=== PATIENT | female | born 1960 | race Hispanic/Latino ===

== ENCOUNTER 2019-07-17 11:09 | Inpatient (IN) | payer OTHER, SELFPAY ==
[2019-07-17] MEDS ORDERED: IPRATROPIUM/ALBUTEROL SULFATE 3 ML AMPUL.NEB IH ONE (11:40)
[2019-07-17] MEDS ORDERED: MAGNESIUM SULFATE 2 GM/50 ML BAG IV ONE (11:40)
[2019-07-17] MEDS ORDERED: CEFEPIME/NS 2 GM/100 ML 2 GM/100 ML BAG IV ONE (11:40)
[2019-07-17] MEDS ORDERED: methylPREDNISolone Sod Succinate 125 MG/2 ML INJ IV ONE (11:40)
--- NOTE | 2019-07-17 11:45 | Emergency Department Report ---
ED Shortness of Breath HPI - General Chief Complaint: Dyspnea/Respdistress Stated Complaint: PNEUMONIA Time Seen by Provider: 07/17/19 11:32 Source: patient Mode of arrival: Ambulatory Limitations: No Limitations - History of Present Illness Initial Comments: Patient is a 58-year-old female that presents emergency room with complaints of shortness of breath and fatigue and bilateral lower extremity edema as well as periorbital edema. Patient states her edema to her face and legs been going on for 1 month. Patient states her edema is worsening. Patient states her fatigue is worsening. Patient states her shortness of breath has been worsening. P atient states she was seen in an urgent care 2 days ago and was prescribed Augmentin and redness oh. Patient states she is taking medications. Patient states her symptoms are not improving. Patient states her oxygen saturation is decreasing. Patient states she has a history of asthma but does not have a history of COPD. Patient states she smokes daily. Patient states she is a pack-a-day smoker. MD Complaint: shortness of breath, cough -: Sudden Severity: severe Known History Of: COPD, asthma Context: recent URI Associated Symptoms: pain with inspiration, cough, orhopnia Treatments Prior to Arrival: bronchodilator - Related Data Home Oxygen Therapy: No Allergies Allergy/AdvReac Type Severity Reaction Status Date / Time codeine AdvReac Nausea Verified 07/17/19 11:16 ED Review of Systems ROS: Stated complaint: PNEUMONIA Other details as noted in HPI Constitutional: denies: chills, fever Eyes: denies: eye pain, eye discharge, vision change ENT: denies: ear pain, throat pain Respiratory: cough, orthopnea, shortness of breath, SOB with exertion, SOB at rest, wheezing Cardiovascular: denies: chest pain, palpitations Endocrine: no symptoms reported Gastrointestinal: denies: abdominal pain, nausea, diarrhea Genitourinary: denies: urgency, dysuria, discharge Musculoskeletal: denies: back pain, joint swelling, arthralgia Skin: denies: rash, lesions Neurological: denies: headache, weakness, paresthesias Psychiatric: denies: anxiety, depression Hematological/Lymphatic: denies: easy bleeding, easy bruising ED Past Medical Hx - Past Medical History Previous Medical History?: Yes Hx Asthma: Yes - Surgical History Past Surgical History?: Yes Additional Surgical History: sinus surgery - Family History Family history: no significant - Social History Smoking Status: Current Every Day Smoker Substance Use Type: None ED Physical Exam - General Limitations: No Limitations General appearance: alert, appears intoxicated - Head Head exam: Present: atraumatic, normocephalic - Eye Eye exam: Present: normal appearance - ENT ENT exam: Present: mucous membranes moist - Neck Neck exam: Present: normal inspection - Respiratory Respiratory exam: Present: respiratory distress, wheezes, rhonchi, chest wall tenderness, accessory muscle use - Cardiovascular Cardiovascular Exam: Present: regular rate, normal rhythm. Absent: systolic murmur, diastolic murmur, rubs, gallop - GI/Abdominal GI/Abdominal exam: Present: soft, normal bowel sounds - Extremities Exam Extremities exam: Present: normal inspection - Back Exam Back exam: Present: normal inspection - Neurological Exam Neurological exam: Present: alert, oriented X3 - Psychiatric Psychiatric exam: Present: normal affect, normal mood - Skin Skin exam: Present: warm, dry, intact, normal color. Absent: rash ED Course Vital Signs 07/17/19 07/17/19 07/17/19 11:14 12:01 14:09 Temperature 97.6 F Pulse Rate 81 71 Pulse Rate [ 74 Anterior Bilateral Throughout] Respiratory 18 12 Rate Respiratory 22 Rate [Anterior Bilateral Throughout] Blood Pressure 176/96 O2 Sat by Pulse 86 95 Oximetry - Reevaluation(s) Reevaluation #1: Patient states she's feeling a little bit better. Patient is currently on a nebulizer treatment. Patient's oxygen saturation better on oxygen. 07/17/19 12:11 Reevaluation #2: Nurse asked me to see the patient. The patient is currently descending on 3 L of O2. Patient will be placed on BiPAP 07/17/19 13:23 Reevaluation #3: Patient on BiPAP. Patient's oxygen saturation better. Patient states she is feeling better. I discussed all results with patient. I discussed plan of care and admission with patient. Patient agrees with admission. Patient will be admitted to the hospital service. 07/17/19 14:22 - Consultations Consultation #1: Hospitalist consult for admission. Hospitalist admit patient. 07/17/19 14:23 ED Medical Decision Making - Lab Data Result diagrams: 07/17/19 11:56 07/17/19 11:56 - EKG Data -: EKG Interpreted by Me EKG shows normal: sinus rhythm, axis, intervals, QRS complexes, ST-T waves Rate: normal - Radiology Data Radiology results: report reviewed, image reviewed CHEST 1 VIEW / XR chest 1V ap INDICATION: Dyspnea. COMPARISON: None. FINDINGS: Portable, single, frontal chest radiograph suggests mild cardiomegaly. Slight aortic knob calcifications. Grossly normal mediastinal and hilar contours. Clear lungs without pleural effusions or CHF. Right hemidiaphragm slightly higher than the left. EKG leads. Intact bones. IMPRESSION: Slight cardiomegaly without acute chest process, as described. - Medical Decision Making Patient is a 58-year-old female that presents emergency room for difficulties breathing, shortness of breath. Patient found to have respiratory distress on initial evaluation. Patient placed on oxygen for hypoxia. Patient's clinical f indings consistent with a COPD and possible new onset CHF. Patient admitted to the hospital service. Patient's labs unremarkable except for elevated BNP. Patient's chest x-ray negative except for cardiomegaly. Patient's EKG read. - Differential Diagnosis shortness of breath. CHF. COPD. Hypoxia Critical Care Time: Yes Critical care time in (mins) excluding proc time.: 35 Critical care attestation.: If time is entered above; I have spent that time in minutes in the direct care of this critically ill patient, excluding procedure time. Critical Care Time: 35 minutes ED Disposition Clinical Impression: Hypoxia, SOB (shortness of breath), New onset of congestive heart failure, Lower leg edema, COPD exacerbation, Elevated brain natriuretic peptide (BNP) level, Hyperkalemia Disposition: OP ADMIT IP TO THIS HOSP Is pt being admited?: Yes Does the pt Need Aspirin: No Condition: Critical Referrals: PRIMARY CARE, [Primary Care Provider] - 3-5 Days Time of Disposition: 14:21
[2019-07-17 12:24] LABS: Basophils % (Auto) 0.4 % (0.0-1.8); Eosinophils % (Auto) 0.1 % (0.0-4.3); Hemoglobin 18.2 gm/dl (10.1-14.3); Lymphocytes # (Auto) 0.9 K/mm3 (1.2-5.4); Mean Corpuscular HGB Conc 33 % (30-34); Mean Corpuscular Volume 112 fl (79-97); Monocytes # (Auto) 0.7 K/mm3 (0.0-0.8); Monocytes % (Auto) 10.7 % (0.0-7.3); Platelet Count 177 K/mm3 (140-440); Red Blood Count 4.92 M/mm3 (3.65-5.03); Red Cell Distribution Width 15.9 % (13.2-15.2)
[2019-07-17 12:27] LABS: Hematocrit 55.1 % (30.3-42.9)
--- NOTE | 2019-07-17 12:32 | XRay Report ---
CHEST 1 VIEW / XR chest 1V ap INDICATION: Dyspnea. COMPARISON: None. FINDINGS: Portable, single, frontal chest radiograph suggests mild cardiomegaly. Slight aortic knob c alcifications. Grossly normal mediastinal and hilar contours. Clear lungs without pleural effusions o r CHF. Right hemidiaphragm slightly higher than the left. EKG leads. Intact bones. IMPRESSION: Slight cardiomegaly without acute chest process, as described. Thank you for the opportunity to participate in this patient's care. Signer Name: David Guerra Signed: 07/17/2019 12:28 PM Workstation Name: [id number]
[2019-07-17 12:45] LABS: Creatine Kinase MB 4.9 ng/mL (0.0-4.0)
[2019-07-17 12:49] LABS: Alanine Aminotransferase 75 units/L (7-56); Albumin 4.3 g/dL (3.9-5); BUN/Creatinine Ratio 36; Blood Urea Nitrogen 18 mg/dL (7-17); Hemolysis Index 32
[2019-07-17] MEDS ORDERED: FUROSEMIDE 40 MG/4 ML INJ IV ONE (13:39)
--- NOTE | 2019-07-17 14:22 | History and Physical Report ---
History of Present Illness Chief complaint: Im short of breath History of present illness: 58 YO Female with Obesity Hypoventilation Syndrome, COPD, Asthma, Nicotine Dependence presents to ED for evaluation. Pt states that she has experienced shortness of breath over the past 1 week, with progressively worsening symptoms over the past 3 days. Pt was seen and evaluated at Urgent Care 2 days ago and treated with oral antibiotics with worsening symptoms. Pt also reports bilateral leg swelling, decreased exercise tolerance, Orthopnea/PND, Dypsnea on exertion, Dypsnea at rest, and 7 lbs weight gain over the past 1 week. Pt transported to [facility] via private vehicle. Pt seen and evaluated in ED and found to have Acute Hypoxemic Respiratory Failure with pulse oximetry of 86% on room air, as well as symptoms consistent with CHF Decompensation. Pt admitted to [facility]. Pt treated with diuretic therapy and NIPPV with mild improvement in symptoms. Pt denies fever, chills, palpitations, trauma, BRBPR, productive cough, skin rash, or recent ill contacts. No prior admission for review. No medication listed for reconciliation at time of admission. Past History Past Medical History: other (see hpi) Past Surgical History: Other (Nasal surgery) Social history: single, smoking Family history: diabetes, hypertension Medications and Allergies Allergies Allergy/AdvReac Type Severity Reaction Status Date / Time codeine AdvReac Nausea Verified 07/17/19 11:16 Review of Systems Constitutional: weight gain, no weight loss, no fever, no chills, no sweats Ears, nose, mouth and throat: no ear pain, no ear discharge, no tinnitis, no decreased hearing, no nose pain, no nasal congestion Cardiovascular: orthopnea, edema, shortness of breath, dyspnea on exertion, paroxysmal nocturnal dyspnea, leg edema, decreased exercise tolerance, no chest pain, no palpitations, no rapid/irregular heart beat Respiratory: no cough, no cough with sputum, no excessive sputum, no hemoptysis Gastrointestinal: no abdominal pain, no nausea, no vomiting, no constipation, no hematemesis Genitourinary Female: no pelvic pain, no flank pain, no menorrhagia, no urgency Rectal: no pain, no incontinence, no bleeding Musculoskeletal: no neck stiffness, no neck pain, no shooting arm pain, no arm numbness/tingling Integumentary: no rash, no pruritis, no redness, no sores, no jaundice Neurological: no transient paralysis, no paralysis, no weakness, no parathesias, no numbness, no tingling, no seizures, no syncope Psychiatric: no anxiety, no memory loss, no change in sleep habits, no sleep disturbances, no hypersomnia, no change in appetite, no change in libido, no suicidal ideation Endocrine: no cold intolerance, no heat intolerance, no polyphagia, no excessive thirst, no polydipsia, no polyuria, no excessive sweating, no flushing Hematologic/Lymphatic: no easy bruising, no easy bleeding, no lymphadenopathy, no lymphedema Allergic/Immunologic: no allergic rhinitis, no wheezing, no anaphylaxis, no angioedema Exam - Constitutional Vitals: Temp Pulse Resp BP Pulse Ox 97.6 F 74 22 176/96 86 07/17/19 11:14 07/17/19 12:01 07/17/19 12:01 07/17/19 11:14 07/17/19 11:14 General appearance: Present: mild distress, obese - EENT Eyes: Present: PERRL ENT: hearing intact, clear oral mucosa - Neck Neck: Present: supple, normal ROM - Respiratory Respiratory effort: labored, accessory muscle use, stridor Respiratory: bilateral: diminished, rhonchi - Cardiovascular Heart Sounds: Present: S1 & S2. Absent: rub, click - Extremities Extremities: pulses symmetrical, No edema Peripheral Pulses: within normal limits - Abdominal General gastrointestinal: Present: soft, non-tender, non-distended, normal bowel sounds Female genitourinary: Present: normal - Integumentary Integumentary: Present: clear, warm, dry - Musculoskeletal Musculoskeletal: gait normal, strength equal bilaterally - Psychiatric Psychiatric: appropriate mood/affect, intact judgment & insight - Neurologic Neurologic: CNII-XII intact, moves all extremities Results - Labs CBC & Chem 7: 07/17/19 11:56 07/17/19 11:56 Labs: Abnormal lab results 07/17/19 07/17/19 07/17/19 Range/Units 11:56 11:56 11:56 Hgb 18.2 H (10.1-14.3) gm/dl Hct 55.1 H* (30.3-42.9) % MCV 112 H (79-97) fl MCH 37 H (28-32) pg RDW 15.9 H (13.2-15.2) % [place] % (Auto) 10.7 H (0.0-7.3) % Lymph # 0.9 L (1.2-5.4) K/mm3 Seg Neutrophils % 74.8 H (40.0-70.0) % Potassium 5.1 H (3.6-5.0) mmol/L BUN 18 H (7-17) mg/dL Creatinine 0.5 L (0.7-1.2) mg/dL AST 44 H (5-40) units/L ALT 75 H (7-56) units/L CK-MB (CK-2) 4.9 H (0.0-4.0) ng/mL CK-MB (CK-2) Rel Index 8.3 H (0-4) NT-Pro-B Natriuret Pep (0-900) pg/mL 07/17/19 Range/Units 12:07 Hgb (10.1-14.3) gm/dl Hct (30.3-42.9) % MCV (79-97) fl MCH (28-32) pg RDW (13.2-15.2) % [place] % (Auto) (0.0-7.3) % Lymph # (1.2-5.4) K/mm3 Seg Neutrophils % (40.0-70.0) % Potassium (3.6-5.0) mmol/L BUN (7-17) mg/dL Creatinine (0.7-1.2) mg/dL AST (5-40) units/L ALT (7-56) units/L CK-MB (CK-2) (0.0-4.0) ng/mL CK-MB (CK-2) Rel Index (0-4) NT-Pro-B Natriuret Pep 1446 H (0-900) pg/mL Assessment and Plan - Patient Problems (1) CHF (congestive heart failure) Current Visit: Yes Status: Suspected Qualifiers: Heart failure type: systolic Heart failure chronicity: acute Qualified Code(s): I50.21 - Acute systolic (congestive) heart failure Plan to address problem: Admit to IMCU, Diuresis, BNP, strict I/O, daily weight, monitor uop q shift, Echo, thyroid panel, magnesium level, supplemental oxygen, (2) Acute hypoxemic respiratory failure Current Visit: Yes Status: Acute Plan to address problem: Chest X ray, CTA chest, supplemental oxygen, nebulizer therapy, NIPPV, ABG, pulse oximetry, (3) Obesity hypoventilation syndrome Current Visit: Yes Status: Acute Plan to address problem: Supplemental oxgygen, nebulizer therapy, balanced diet, increased physical activity at discharge, pulse oximetry (4) Nicotine dependence unspecified, with withdrawal Current Visit: Yes Status: Acute Qualifiers: Nicotine product type: cigarettes Qualified Code(s): F17.213 - Nicotine dependence, cigarettes, with withdrawal Plan to address problem: +15 min smoking cessation counseling, supportive care. (5) DVT prophylaxis Current Visit: Yes Status: Acute Plan to address problem: SCD to BLE while in bed, Pt ambulatory
[2019-07-17] MEDS ORDERED: ALBUTEROL 2.5 MG/3 ML NEBU IH PRN (14:39)
--- NOTE | 2019-07-17 16:01 | Cat Scan Report ---
CTA CHEST WITH CONTRAST / CT angio chest INDICATION : sob. hypoxia. TECHNIQUE: Axial imaging performed through the chest, with contrast bolus timing set to maximize opa cification of the pulmonary arteries. 3-plane MIP reformatted images were obtained. All CT scans at this location are performed using CT dose reduction for ALARA by means of automated exposure control. 100 mL of intravenous contrast administered. COMPARISON: CXR from earlier today. FINDINGS: Normal heart size with silhouette slightly exaggerated due to prominent right cardiophrenic angle fat pad. No effusions. No aortic aneurysm, dissection or suspicious pulmonary arterial filling defects. Mild pulmonary arterial hypertension. Mild aortic arch atherosclerotic calcifications noted . No size significant adenopathy. Normal airway. Unremarkable thyroid. Slight bibasilar atelectasis. Otherwise unremarkable lungs. Imaged upper abdomen reveals no acute significant abnormality. Subtle fatty hepatic infiltration not entirely excluded. Small bilateral extrarenal pelves may be incompletely imaged. Mild multilevel spinal degenerative changes as spurring and few endplate irregularities. IMPRESSION: No CT evidence of pulmonary embolism with few other incidental findings, as above. Thank you for the opportunity to participate in this patient's care. Signer Name: David Guerra Signed: 07/17/2019 3:56 PM Workstation Name: [id number]
[2019-07-18] MEDS: NICOTINE 14 MG/24 HR PATCH TD SCH ×2 (00:07→09:54)
[2019-07-18 05:01] LABS: Basophils % (Auto) 0.1 % (0.0-1.8); Hemoglobin 19.1 gm/dl (10.1-14.3); Lymphocytes # (Auto) 0.5 K/mm3 (1.2-5.4); Lymphocytes % (Auto) 6.6 % (13.4-35.0); Mean Corpuscular HGB Conc 33 % (30-34); Mean Corpuscular Volume 111 fl (79-97); Monocytes # (Auto) 0.3 K/mm3 (0.0-0.8); Monocytes % (Auto) 4.5 % (0.0-7.3); Platelet Count 171 K/mm3 (140-440); Red Blood Count 5.25 M/mm3 (3.65-5.03); Red Cell Distribution Width 15.5 % (13.2-15.2)
[2019-07-18 05:07] LABS: Hematocrit 58.4 % (30.3-42.9)
[2019-07-18] MEDS: FUROSEMIDE 40 MG/4 ML INJ IV SCH ×2 (05:13→17:39)
[2019-07-18 05:21] LABS: Alanine Aminotransferase 76 units/L (7-56); Albumin 3.9 g/dL (3.9-5); BUN/Creatinine Ratio 37; Blood Urea Nitrogen 22 mg/dL (7-17); Hemolysis Index 19
--- NOTE | 2019-07-18 08:05 | Progress Note ---
Assessment and Plan Assessment and plan: 58-year-old woman with history of obesity, COPD, nicotine dependence presents to the hospital shortness of breath x1 week , complaining edema to extremities and face, current every day smoker pack per day Chest x-ray slight cardiomegaly, no acute findings Copd exacerbation; steroids, nebs, pulmonology consults, aggressive chest PT -Was on Stiolto and was following with Dr. Goff. Has not followed up or taken the medications due to lack of insurance Acute hypoxic respiratory failure -Oxygen supplementation CHF was suspected but highly doubt CHF based on my exam. Patient appears euvolemic and is laying flat Discontinue diuretics, obtain echo, cardiology consult pending Tobacco abuse/dependence Smoking cessation counseling performed for 10 minutes, nicotine patches when necessary Polycythemia -Polycythemia is most likely due to smoking. Hematology consult -Patient admits that she was following up as an outpatient for for polycythemia, and it is not new dvt ppx- lovenox History Interval history: Review of systems Constitutional: No fevers, no malaise, no joint pains CVS: No chest pain, denies orthopnea or lower extremity swelling GI: No abdominal pain, no diarrhea, no vomiting, no constipation Respiratory: Complaining of shortness of breath which has been very severe. Hospitalist Physical - Physical exam Narrative exam: General.: Mild distress HEENT: Moist mucous membranes, extraocular muscles intact, no lymphadenopathy Neck: supple Cardiac: S1-S2 heard Lungs: Decreased air entry, faint expiratory wheezing Abdomen: soft , nontender, nondistended, bowel sounds positive Extremities: No edema Skin: no rash or lesions Neurologic: no gross focal deficits Psych: calm, and cooperative - Constitutional Vitals: Temp Pulse Resp BP Pulse Ox 97.7 F 56 L 15 145/94 95 07/18/19 04:00 07/18/19 07:00 07/18/19 07:00 07/18/19 07:00 07/18/19 07:00 General appearance: Present: mild distress, obese Results - Labs CBC & Chem 7: 07/18/19 04:17 07/18/19 04:17 Labs: Laboratory Last Values WBC 7.0 K/mm3 (4.5-11.0) 07/18/19 04:17 RBC 5.25 M/mm3 (3.65-5.03) H 07/18/19 04:17 Hgb 19.1 gm/dl (10.1-14.3) H 07/18/19 04:17 Hct 58.4 % (30.3-42.9) H* 07/18/19 04:17 MCV 111 fl (79-97) H 07/18/19 04:17 MCH 36 pg (28-32) H 07/18/19 04:17 MCHC 33 % (30-34) 07/18/19 04:17 RDW 15.5 % (13.2-15.2) H 07/18/19 04:17 Plt Count 171 K/mm3 (140-440) 07/18/19 04:17 Lymph % (Auto) 6.6 % (13.4-35.0) L 07/18/19 04:17 [place] % (Auto) 4.5 % (0.0-7.3) 07/18/19 04:17 Eos % (Auto) 0.0 % (0.0-4.3) 07/18/19 04:17 Baso % (Auto) 0.1 % (0.0-1.8) 07/18/19 04:17 Lymph # 0.5 K/mm3 (1.2-5.4) L 07/18/19 04:17 [place] # 0.3 K/mm3 (0.0-0.8) 07/18/19 04:17 Eos # 0.0 K/mm3 (0.0-0.4) 07/18/19 04:17 Baso # 0.0 K/mm3 (0.0-0.1) 07/18/19 04:17 Seg Neutrophils % 88.8 % (40.0-70.0) H 07/18/19 04:17 Seg Neutrophils # 6.2 K/mm3 (1.8-7.7) 07/18/19 04:17 POC ABG pH 7.355 (7.35-7.45) 07/17/19 17:51 POC ABG pCO2 69.3 (35-45) H 07/17/19 17:51 POC ABG pO2 63 (80-105) L 07/17/19 17:51 POC ABG HCO3 38.7 (22-26 mml/L) 07/17/19 17:51 POC ABG Total CO2 41 (23-27mmol/L) 07/17/19 17:51 POC ABG O2 Sat 89 07/17/19 17:51 POC ABG Base Excess 13 ((-2) - (+3)mmol/L) 07/17/19 17:51 FiO2 35 % 07/17/19 17:51 Sodium 141 mmol/L (137-145) 07/18/19 04:17 Potassium 5.0 mmol/L (3.6-5.0) 07/18/19 04:17 Chloride 96.3 mmol/L (98-107) L 07/18/19 04:17 Carbon Dioxide 32 mmol/L (22-30) H 07/18/19 04:17 Anion Gap 18 mmol/L 07/18/19 04:17 BUN 22 mg/dL (7-17) H 07/18/19 04:17 Creatinine 0.6 mg/dL (0.7-1.2) L 07/18/19 04:17 Estimated GFR > 60 ml/min 07/18/19 04:17 BUN/Creatinine Ratio 37 % 07/18/19 04:17 Glucose 153 mg/dL (65-100) H 07/18/19 04:17 Lactic Acid 1.00 mmol/L (0.7-2.0) 07/17/19 11:56 Calcium 9.0 mg/dL (8.4-10.2) 07/18/19 04:17 Magnesium 2.60 mg/dL (1.7-2.3) H 07/17/19 16:23 Total Bilirubin 0.50 mg/dL (0.1-1.2) 07/18/19 04:17 AST 39 units/L (5-40) 07/18/19 04:17 ALT 76 units/L (7-56) H 07/18/19 04:17 Alkaline Phosphatase 67 units/L (35-129) 07/18/19 04:17 Total Creatine Kinase 59 units/L (30-135) 07/17/19 11:56 CK-MB (CK-2) 4.9 ng/mL (0.0-4.0) H 07/17/19 11:56 CK-MB (CK-2) Rel Index 8.3 (0-4) H 07/17/19 11:56 Troponin T < 0.010 ng/mL (0.00-0.029) 07/17/19 11:56 NT-Pro-B Natriuret Pep 1446 pg/mL (0-900) H 07/17/19 12:07 Total Protein 6.5 g/dL (6.3-8.2) 07/18/19 04:17 Albumin 3.9 g/dL (3.9-5) 07/18/19 04:17 Albumin/Globulin Ratio 1.5 % 07/18/19 04:17 TSH 1.510 mlU/mL (0.270-4.200) 07/17/19 16:23 Free T4 1.00 ng/dL (0.76-1.46) 07/17/19 16:23 Active Medications - Current Medications Current Medications: Generic Name Dose Route Start Last Admin Trade Name Freq PRN Reason Stop Dose Admin Albuterol 2.5 mg 07/17/19 14:39 Proventil IH Q3HRT PRN Shortness Of Breath Enoxaparin Sodium 40 mg 07/18/19 22:00 Enoxaparin SUB-Q QDAY@2200 SARTHAK Furosemide 40 mg 07/17/19 18:00 07/18/19 05:13 Lasix IV 40 mg 0600,1800 SARTHAK Administration Nicotine 14 mg 07/17/19 00:30 07/18/19 00:07 Habitrol TD 14 mg QDAY SARTHAK Administration Sodium Chloride 10 ml 07/17/19 22:00 07/18/19 00:08 Sodium Chloride Flush Syringe 10 Ml IV 10 ml BID SARTHAK Administration Sodium Chloride 10 ml 07/17/19 14:39 Sodium Chloride Flush Syringe 10 Ml IV PRN PRN LINE FLUSH
[2019-07-18] MEDS ORDERED: FLU VACC QUAD 2019-20 (3 YR UP)/PF 60 MCG/0.5 ML SYRINGE IM ONE (12:00)
[2019-07-18] MEDS ORDERED: methylPREDNISolone Sod Succinate 40 MG/1 ML INJ IV SCH (14:00)
--- NOTE | 2019-07-18 15:34 | Consultation ---
History of Present Illness Consult date: 07/18/19 History of present illness: Shortness of breath and cough.History of present illness: 58 YO Female with Obesity Hypoventilation Syndrome, COPD, Asthma, Nicotine Dependence presents to ED for evaluation. Pt states that she has experienced shortness of breath over the past 1 week, with progressively worsening symptoms over the past 3 days. Pt was seen and evaluated at Urgent Care 2 days ago and treated with oral antibiotics with worsening symptoms. Pt also reports bilateral leg swelling, decreased exercise tolerance, Orthopnea/PND, Dypsnea on exertion, Dypsnea at rest, and 7 lbs weight gain over the past 1 week. Pt transported to [facility] via private vehicle. Pt seen and evaluated in ED and found to have Acute Hypoxemic Respiratory Failure with pulse oximetry of 86% on room air, as well as symptoms consistent with CHF Decompensation. Pt admitted to IM. Pt treated with diuretic therapy and NIPPV with mild improvement in symptoms. Pt denies fever, chills, palpitations, trauma, BRBPR, productive cough, skin rash, or recent ill contacts. No prior admission for review. No medication listed for reconciliation at time of admission. Patient also reports being sleepy for last several days. Has history of snoring has never had sleep studies done. Past History Past Medical History: COPD, other (see hpi) Past Surgical History: Other (Nasal surgery) Social history: single, smoking Family history: diabetes, hypertension Medications and Allergies Allergies Allergy/AdvReac Type Severity Reaction Status Date / Time codeine AdvReac Nausea Verified 07/17/19 11:16 Home Medications Medication Instructions Recorded Confirmed Last Taken Type Amoxicillin/K Clav Tab 875.125 mg PO BIDWM MDD 2 tabs 07/18/19 07/18/19 07/17/19 History 1 tab twice per day Tiotropium Br/Olodaterol HCl 25 mcg INHALATION PRN PRN 07/18/19 07/18/19 Unknown History Active Meds: Active Medications Albuterol (Proventil) 2.5 mg IH Q3HRT PRN PRN Reason: Shortness Of Breath Albuterol/Ipratropium (Duoneb *Not For Prn Use*) 1 ampul IH Q6HRT [facility] Arformoterol Tartrate (Brovana Nebu) 15 mcg IH Q12HRT [facility] Azithromycin (Zithromax) 500 mg PO QDAY [facility] Budesonide (Pulmicort) 0.5 mg IH Q12HRT [facility] Enoxaparin Sodium (Enoxaparin) 40 mg SUB-Q QDAY@2200 [facility] Furosemide (Lasix) 40 mg IV 0600,1800 [facility] Last Admin: 07/18/19 05:13 Dose: 40 mg Documented by: Methylprednisolone Sodium Succinate (Solu-Medrol) 125 mg IV Q8HR [facility] Nicotine (Habitrol) 14 mg TD QDAY [facility] Last Admin: 07/18/19 09:54 Dose: 14 mg Documented by: Sodium Chloride (Sodium Chloride Flush Syringe 10 Ml) 10 ml IV BID [facility] Last Admin: 07/18/19 09:55 Dose: 10 ml Documented by: Sodium Chloride (Sodium Chloride Flush Syringe 10 Ml) 10 ml IV PRN PRN PRN Reason: LINE FLUSH Review of Systems All systems: negative Constitutional: weight gain Breasts: deferred Cardiovascular: edema, dyspnea on exertion, leg edema Respiratory: cough, cough with sputum, shortness of breath, dyspnea on exertion, congestion, wheezing Physical Examination Vital signs: Vital Signs BP Pulse Ox 176/89 97 07/17/19 07:37 07/17/19 07:37 General appearance: no acute distress, alert, other (sincerely obese) ENT: oropharynx moist, other (crowded oropharynx) Neck: supple, no lymphadenopathy Ascultation: Bilateral: diminished breath sounds, rhonchi Gastrointestinal: other (obese) Extremities: edema (trace edema) Results - Laboratory Findings CBC and BMP: 07/18/19 04:17 07/18/19 04:17 ABG POC ABG pH 7.355 (7.35-7.45) 07/17/19 17:51 POC ABG pCO2 69.3 (35-45) H 07/17/19 17:51 POC ABG pO2 63 (80-105) L 07/17/19 17:51 POC ABG HCO3 38.7 (22-26 mml/L) 07/17/19 17:51 POC ABG Total CO2 41 (23-27mmol/L) 07/17/19 17:51 POC ABG O2 Sat 89 07/17/19 17:51 Abnormal lab findings: Abnormal Labs 07/17/19 07/17/19 07/17/19 11:56 11:56 11:56 RBC Hgb 18.2 H Hct 55.1 H* MCV 112 H MCH 37 H RDW 15.9 H Lymph % (Auto) [place] % (Auto) 10.7 H Lymph # 0.9 L Seg Neutrophils % 74.8 H POC ABG pCO2 POC ABG pO2 Potassium 5.1 H Chloride Carbon Dioxide BUN 18 H Creatinine 0.5 L Glucose Magnesium AST 44 H ALT 75 H CK-MB (CK-2) 4.9 H CK-MB (CK-2) Rel Index 8.3 H NT-Pro-B Natriuret Pep 07/17/19 07/17/19 07/17/19 12:07 16:23 17:51 RBC Hgb Hct MCV MCH RDW Lymph % (Auto) [place] % (Auto) Lymph # Seg Neutrophils % POC ABG pCO2 69.3 H POC ABG pO2 63 L Potassium Chloride Carbon Dioxide BUN Creatinine Glucose Magnesium 2.60 H AST ALT CK-MB (CK-2) CK-MB (CK-2) Rel Index NT-Pro-B Natriuret Pep 1446 H 07/18/19 07/18/19 04:17 04:17 RBC 5.25 H Hgb 19.1 H Hct 58.4 H* MCV 111 H MCH 36 H RDW 15.5 H Lymph % (Auto) 6.6 L [place] % (Auto) Lymph # 0.5 L Seg Neutrophils % 88.8 H POC ABG pCO2 POC ABG pO2 Potassium Chloride 96.3 L Carbon Dioxide 32 H BUN 22 H Creatinine 0.6 L Glucose 153 H Magnesium AST ALT 76 H CK-MB (CK-2) CK-MB (CK-2) Rel Index NT-Pro-B Natriuret Pep - Diagnostic Findings Chest x-ray: image reviewed (chest x-ray unremarkable) Assessment and Plan COPD with exacerbation Acute bronchitis Suspect obstructive sleep apnea Rule out congestive heart failure History of tobacco abuse. History of alcohol use. Recommendation: Continue with her current regimen Will add antibiotic azithromycin for bronchitis Will benefit from sleep study as an outpatient. On the function tests etc. as outpatient as well. Smoking cessation counseling was provided.
[2019-07-18] MEDS: BUDESONIDE 0.5 MG/2 ML NEBU IH SCH ×2 (15:59→20:26)
[2019-07-18] MEDS: ARFORMOTEROL 15 MCG/2 ML NEBU IH SCH ×2 (16:01→20:26)
[2019-07-18] MEDS: IPRATROPIUM/ALBUTEROL SULFATE 3 ML AMPUL.NEB IH SCH ×2 (16:02→20:27)
[2019-07-18] MEDS: AZITHROMYCIN 250 MG TAB PO SCH (18:28)
[2019-07-18] MEDS: methylPREDNISolone Sod Succinate 125 MG/2 ML INJ IV SCH (21:53)
[2019-07-18] MEDS: ENOXAPARIN 40 MG/0.4 ML INJ SUB-Q SCH (21:53)
[2019-07-19] MEDS: IPRATROPIUM/ALBUTEROL SULFATE 3 ML AMPUL.NEB IH SCH ×4 (02:41→20:21)
[2019-07-19] MEDS: FUROSEMIDE 40 MG/4 ML INJ IV SCH ×2 (06:01→18:56)
[2019-07-19] MEDS: methylPREDNISolone Sod Succinate 125 MG/2 ML INJ IV SCH ×3 (06:01→22:12)
[2019-07-19] MEDS ORDERED: hydrALAZINE 20 MG/1 ML INJ IV PRN (08:41)
[2019-07-19] MEDS: ARFORMOTEROL 15 MCG/2 ML NEBU IH SCH ×2 (09:55→20:21)
[2019-07-19] MEDS: BUDESONIDE 0.5 MG/2 ML NEBU IH SCH ×2 (09:55→20:21)
[2019-07-19] MEDS: NICOTINE 14 MG/24 HR PATCH TD SCH (09:56)
[2019-07-19] MEDS: amLODIPine 10 MG TAB PO SCH (09:58)
--- NOTE | 2019-07-19 12:54 | Consultation ---
<ROSA M LAUGHLIN - Last Filed: 07/19/19 14:16> History of Present Illness Consult date: 07/19/19 Requesting physician: ADRIANA HINOJOSA Consult reason: congestive heart failure History of present illness: Ms. Redd is a 58 y/o female who presented to [facility] with SOB and edema of the face and extremities that worsened over the past one to two weeks. She is not known to our practice. She has a history significant for COPD, obes ity and tobacco abuse. A CXR found no acute chest process and a CTA was negative for PE. An echocardiogram on 07/17/19 found an EF of 55 to 60 percent and septal wall hypertrophy. Past History Past Medical History: COPD, other (see hpi) Past Surgical History: Other (Nasal surgery) Social history: single, smoking Family history: diabetes, hypertension Medications and Allergies Allergies Allergy/AdvReac Type Severity Reaction Status Date / Time codeine AdvReac Nausea Verified 07/17/19 11:16 Home Medications Medication Instructions Recorded Confirmed Last Taken Type Amoxicillin/K Clav Tab 875.125 mg PO BIDWM MDD 2 tabs 07/18/19 07/18/19 07/17/19 History 1 tab twice per day Tiotropium Br/Olodaterol HCl 25 mcg INHALATION PRN PRN 07/18/19 07/18/19 Unknown History Active Meds: Active Medications Albuterol (Proventil) 2.5 mg IH Q3HRT PRN PRN Reason: Shortness Of Breath Albuterol/Ipratropium (Duoneb *Not For Prn Use*) 1 ampul IH TIDRT [facility] Last Admin: 07/19/19 09:54 Dose: 1 ampul Documented by: Amlodipine Besylate (Amlodipine) 10 mg PO QDAY [facility] Last Admin: 07/19/19 09:58 Dose: 10 mg Documented by: Arformoterol Tartrate (Brovana Nebu) 15 mcg IH Q12HRT [facility] Last Admin: 07/19/19 09:55 Dose: 15 mcg Documented by: Azithromycin (Zithromax) 500 mg PO Q24H [facility] Last Admin: 07/18/19 18:28 Dose: 500 mg Documented by: Budesonide (Pulmicort) 0.5 mg IH Q12HRT [facility] Last Admin: 07/19/19 09:55 Dose: 0.5 mg Documented by: Enoxaparin Sodium (Enoxaparin) 40 mg SUB-Q QDAY@2200 [facility] Last Admin: 07/18/19 21:53 Dose: 40 mg Documented by: Furosemide (Lasix) 40 mg IV 0600,1800 [facility] Last Admin: 07/19/19 06:01 Dose: 40 mg Documented by: Hydralazine HCl (Apresoline) 10 mg IV Q4HR PRN PRN Reason: BP >160/100 Methylprednisolone Sodium Succinate (Solu-Medrol) 125 mg IV Q8HR [facility] Last Admin: 07/19/19 06:01 Dose: 125 mg Documented by: Nicotine (Habitrol) 14 mg TD QDAY [facility] Last Admin: 07/19/19 09:56 Dose: 14 mg Documented by: Sodium Chloride (Sodium Chloride Flush Syringe 10 Ml) 10 ml IV BID [facility] Last Admin: 07/18/19 21:53 Dose: 10 ml Documented by: Sodium Chloride (Sodium Chloride Flush Syringe 10 Ml) 10 ml IV PRN PRN PRN Reason: LINE FLUSH Review of Systems All systems: negative Respiratory: shortness of breath Physical Examination Last Vital Signs Temp 98.4 F 07/19/19 08:00 Pulse 94 H 07/19/19 13:39 Resp 20 07/19/19 13:39 BP 152/86 07/19/19 10:01 Pulse Ox 93 07/19/19 10:01 General appearance: no acute distress HEENT: Positive: PERRL Neck: Positive: neck supple Cardiac: Positive: Reg Rate and Rhythm Lungs: Positive: Decreased Breath Sounds Neuro: Positive: Grossly Intact Abdomen: Positive: Unremarkable Female genitourinary: deferred Skin: Positive: Clear Musculoskeletal: Normal Range of Motion Extremities: Present: normal Results 07/18/19 04:17 07/18/19 04:17 - Imaging and Cardiology Echo: report reviewed (07/17/19: EF 55-60%, septal wall hypertrophy ) - EKG Interpretation EKG: sinus rhythm EKG interpretations - Telemetry EKG Rhythm: Sinus Rhythm Chamber hypertrophy or enlargement: left atrial enlargement Assessment and Plan The patient is a 58 y/o female admitted with worsening SOB and edema. On examination, she appears euvolemic; echo and CXR are unremarkable -- acute HFpEF seems unlikely based on her presentation. Pulmonology recommendations noted. BPs elevated - will monitor and may consider initiating antihypertensives if t here is no improvement. Continue current management for now. The patient has been seen in conjunction with Dr. Sanchez, who agrees with the assessment and plan. - Patient Problems (1) Acute hypoxemic respiratory failure Current Visit: Yes Status: Acute (2) COPD exacerbation Current Visit: Yes Status: Suspected (3) Tobacco abuse Current Visit: Yes Status: Chronic (4) Obesity Current Visit: Yes Status: Chronic <VAL SANCHEZ R - Last Filed: 07/19/19 16:20> Medications and Allergies Active Meds: Active Medications Albuterol (Proventil) 2.5 mg IH Q3HRT PRN PRN Reason: Shortness Of Breath Albuterol/Ipratropium (Duoneb *Not For Prn Use*) 1 ampul IH TIDRT [facility] Last Admin: 07/19/19 13:36 Dose: 1 ampul Documented by: Amlodipine Besylate (Amlodipine) 10 mg PO QDAY [facility] Last Admin: 07/19/19 09:58 Dose: 10 mg Documented by: Arformoterol Tartrate (Brovana Nebu) 15 mcg IH Q12HRT [facility] Last Admin: 07/19/19 09:55 Dose: 15 mcg Documented by: Azithromycin (Zithromax) 500 mg PO Q24H [facility] Last Admin: 07/19/19 15:39 Dose: 500 mg Documented by: Budesonide (Pulmicort) 0.5 mg IH Q12HRT [facility] Last Admin: 07/19/19 09:55 Dose: 0.5 mg Documented by: Enoxaparin Sodium (Enoxaparin) 40 mg SUB-Q QDAY@2200 [facility] Last Admin: 07/18/19 21:53 Dose: 40 mg Documented by: Furosemide (Lasix) 40 mg IV 0600,1800 [facility] Last Admin: 07/19/19 06:01 Dose: 40 mg Documented by: Hydralazine HCl (Apresoline) 10 mg IV Q4HR PRN PRN Reason: BP >160/100 Methylprednisolone Sodium Succinate (Solu-Medrol) 125 mg IV Q8HR [facility] Last Admin: 07/19/19 15:28 Dose: 125 mg Documented by: Nicotine (Habitrol) 14 mg TD QDAY [facility] Last Admin: 07/19/19 09:56 Dose: 14 mg Documented by: Sodium Chloride (Sodium Chloride Flush Syringe 10 Ml) 10 ml IV BID [facility] Last Admin: 07/19/19 15:28 Dose: 10 ml Documented by: Sodium Chloride (Sodium Chloride Flush Syringe 10 Ml) 10 ml IV PRN PRN PRN Reason: LINE FLUSH Physical Examination Vital Signs BP Pulse Ox 176/89 97 07/17/19 07:37 07/17/19 07:37 Results 07/18/19 04:17 07/18/19 04:17 Assessment and Plan patient with hx. of chronic smoking.copd/asthma,used to see in past,was admitted with SOB of few months duration.Because of insurance reasons,patient did not see a physician in a while.EKG showed S.R,probable left atrial enlargement,
--- NOTE | 2019-07-19 14:49 | Progress Note ---
Assessment and Plan COPD with exacerbation Acute bronchitis Suspect obstructive sleep apnea/OHS Ruled out congestive heart failure History of tobacco abuse. History of alcohol use. 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 On the function tests etc. as outpatient as well. Smoking cessation counseling was provided. Subjective Date of service: 07/19/19 Interval history: Patient is feeling somewhat better on oxygen via Ventimask. Transferred out of IMCU to floor. Objective Vital Signs - 12hr 07/19/19 07/19/19 07/19/19 03:00 03:31 04:00 Temperature 98.5 F Pulse Rate 65 59 L 59 L Pulse Rate [ Anterior Bilateral Throughout] Pulse Rate [ 64 From Monitor] Respiratory 14 17 18 Rate Respiratory Rate [Anterior Bilateral Throughout] Blood Pressure 160/95 160/95 O2 Sat by Pulse 95 93 94 Oximetry 07/19/19 07/19/19 07/19/19 04:34 07:01 07:31 Temperature Pulse Rate 65 65 70 Pulse Rate [ Anterior Bilateral Throughout] Pulse Rate [ From Monitor] Respiratory 13 17 17 Rate Respiratory Rate [Anterior Bilateral Throughout] Blood Pressure 179/99 170/91 170/91 O2 Sat by Pulse 94 94 95 Oximetry 07/19/19 07/19/19 07/19/19 08:00 08:01 08:31 Temperature 98.4 F Pulse Rate 81 81 79 Pulse Rate [ Anterior Bilateral Throughout] Pulse Rate [ 81 From Monitor] Respiratory 16 16 33 H Rate Respiratory Rate [Anterior Bilateral Throughout] Blood Pressure 127/108 161/97 O2 Sat by Pulse 93 93 96 Oximetry 07/19/19 07/19/19 07/19/19 08:45 09:01 09:31 Temperature Pulse Rate 82 94 H Pulse Rate [ Anterior Bilateral Throughout] Pulse Rate [ From Monitor] Respiratory 32 H 30 H Rate Respiratory Rate [Anterior Bilateral Throughout] Blood Pressure 161/97 161/97 O2 Sat by Pulse 93 95 86 Oximetry 07/19/19 07/19/19 07/19/19 09:50 09:58 10:01 Temperature Pulse Rate 92 H 94 H Pulse Rate [ 79 Anterior Bilateral Throughout] Pulse Rate [ From Monitor] Respiratory 18 Rate Respiratory 21 Rate [Anterior Bilateral Throughout] Blood Pressure 152/86 152/86 O2 Sat by Pulse 93 Oximetry 07/19/19 13:39 Temperature Pulse Rate Pulse Rate [ 94 H Anterior Bilateral Throughout] Pulse Rate [ From Monitor] Respiratory Rate Respiratory 20 Rate [Anterior Bilateral Throughout] Blood Pressure O2 Sat by Pulse Oximetry Constitutional: no acute distress, alert, other (sincerely obese) ENT: oropharynx moist, other (crowded oropharynx) Neck: supple, no lymphadenopathy Ascultation: Bilateral: diminished breath sounds, rhonchi Gastrointestinal: other (obese) Extremities: edema (trace edema) CBC and BMP: 07/18/19 04:17 07/18/19 04:17 ABG, PT/INR, D-dimer: ABG POC ABG pH 7.355 (7.35-7.45) 07/17/19 17:51 POC ABG pCO2 69.3 (35-45) H 07/17/19 17:51 POC ABG pO2 63 (80-105) L 07/17/19 17:51 POC ABG HCO3 38.7 (22-26 mml/L) 07/17/19 17:51 POC ABG Total CO2 41 (23-27mmol/L) 07/17/19 17:51 POC ABG O2 Sat 89 07/17/19 17:51 Abnormal lab findings: Abnormal Labs 07/17/19 07/17/19 07/17/19 11:56 11:56 11:56 RBC Hgb 18.2 H Hct 55.1 H* MCV 112 H MCH 37 H RDW 15.9 H Lymph % (Auto) [place] % (Auto) 10.7 H Lymph # 0.9 L Seg Neutrophils % 74.8 H POC ABG pCO2 POC ABG pO2 Potassium 5.1 H Chloride Carbon Dioxide BUN 18 H Creatinine 0.5 L Glucose Magnesium AST 44 H ALT 75 H CK-MB (CK-2) 4.9 H CK-MB (CK-2) Rel Index 8.3 H NT-Pro-B Natriuret Pep 07/17/19 07/17/19 07/17/19 12:07 16:23 17:51 RBC Hgb Hct MCV MCH RDW Lymph % (Auto) [place] % (Auto) Lymph # Seg Neutrophils % POC ABG pCO2 69.3 H POC ABG pO2 63 L Potassium Chloride Carbon Dioxide BUN Creatinine Glucose Magnesium 2.60 H AST ALT CK-MB (CK-2) CK-MB (CK-2) Rel Index NT-Pro-B Natriuret Pep 1446 H 07/18/19 07/18/19 04:17 04:17 RBC 5.25 H Hgb 19.1 H Hct 58.4 H* MCV 111 H MCH 36 H RDW 15.5 H Lymph % (Auto) 6.6 L [place] % (Auto) Lymph # 0.5 L Seg Neutrophils % 88.8 H POC ABG pCO2 POC ABG pO2 Potassium Chloride 96.3 L Carbon Dioxide 32 H BUN 22 H Creatinine 0.6 L Glucose 153 H Magnesium AST ALT 76 H CK-MB (CK-2) CK-MB (CK-2) Rel Index NT-Pro-B Natriuret Pep
[2019-07-19 14:56] LABS: Iron 46 ug/dL (37-170); Total Iron Binding Capacity 396 mcg/dL (250-450)
[2019-07-19] MEDS: AZITHROMYCIN 250 MG TAB PO SCH (15:39)
[2019-07-19] MEDS: ENOXAPARIN 40 MG/0.4 ML INJ SUB-Q SCH (22:12)
[2019-07-20] MEDS: methylPREDNISolone Sod Succinate 125 MG/2 ML INJ IV SCH ×3 (06:19→21:29)
[2019-07-20] MEDS: FUROSEMIDE 40 MG/4 ML INJ IV SCH (06:19)
--- NOTE | 2019-07-20 07:32 | Event Note ---
Date: 07/20/19 [id number]
--- NOTE | 2019-07-20 07:51 | Consultation ---
REFERRED BY: Dr. Macdonald. REASON FOR CONSULTATION: Polycythemia. HISTORY OF PRESENT ILLNESS: I saw the patient, a 58-year-old female in the medical floor. The patient came to the hospital because of shortness of breath. The patient has history of COPD, asthma and active smoker, obesity hypoventilation for about a week. She went to the urgent care, was given antibiotic, also had leg swelling, history of weight gain. As she had high hemoglobin, I have been asked to evaluate the patient. The patient has been seen by Pulmonary team and Cardiology team. At this time, the patient says she wants to go home. No headache, no visual disturbances. No ear discharge, no chest pain. History of shortness of breath present. No vomiting, no diarrhea, no dysuria. No seizure, no syncope, no loss of consciousness. PAST MEDICAL HISTORY: As above. PAST SURGICAL HISTORY: Nasal surgery. SOCIAL HISTORY: Single. History of smoking present. FAMILY HISTORY: Diabetes and hypertension. ALLERGIES: To CODEINE. PHYSICAL EXAMINATION: VITAL SIGNS: Temperature 97.9, pulse 74, respirations 20, BP 137/94. GENERAL: Plethora present. NECK: No neck lymph nodes. HEART: S1, S2. LUNGS: Clear to auscultation. ABDOMEN: Soft. EXTREMITIES: No calf tenderness. LABORATORY DATA: White cell 7, hemoglobin 19, MCV 111, platelet 171. Potassium 5, creatinine 0.6, calcium 9, B12 1000, folate more than 20. Serum iron 46, ferritin 65. TSH 1.5. ASSESSMENT AND PLAN: 1. Polycythemia, presumed to be secondary because of obesity, sleep apnea and smoking. I discussed with the patient regarding quitting smoking. Pulmonary team is following her. I discussed with the patient regarding phlebotomy and will look into the same. IV access is poor. I spoke to the hospitalist team. 2. MCV is high. TSH, B12, folate is normal. We will follow the trend. 3. Mild abnormal liver function test. This may have a role in elevated MCV. 4. History of chronic obstructive pulmonary disease. 5. History of smoking. 6. History of sleep apnea. We will do JAK2 studies and follow the patient. JOB# [id number] NM/NTS
[2019-07-20] MEDS: ARFORMOTEROL 15 MCG/2 ML NEBU IH SCH ×2 (08:57→20:36)
[2019-07-20] MEDS: BUDESONIDE 0.5 MG/2 ML NEBU IH SCH ×2 (08:57→20:36)
[2019-07-20] MEDS: IPRATROPIUM/ALBUTEROL SULFATE 3 ML AMPUL.NEB IH SCH ×3 (09:07→20:37)
--- NOTE | 2019-07-20 09:49 | Progress Note ---
Assessment and Plan Assessment and plan: 58-year-old woman with history of obesity, COPD, nicotine dependence presents to the hospital shortness of breath x1 week , complaining edema to extremities and face, current every day smoker pack per day Chest x-ray slight cardiomegaly, no acute findings Copd exacerbation; steroids, nebs, pulmonology consults, aggressive chest PT -Was on Stiolto and was following with Dr. Goff. Has not followed up or taken the medications due to lack of insurance Acute hypoxic respiratory failure -Oxygen supplementation -Evaluate for home oxygen, this was discussed with case management CHF was ruled out CHF was suspected but highly doubt CHF based on my exam. Patient appears euvolemic and is laying flat Discontinued diuretics, echo shows preserved EF, cardiology consult pending Tobacco abuse/dependence Smoking cessation counseling performed for 10 minutes, nicotine patches when necessary Polycythemia -Polycythemia is most likely due to smoking. Hematology consult -Patient admits that she was following up as an outpatient for for polycythemia, and it is not new -Discussed with Dr. Gant, he plans to do phlebotomy. However nursing staff are not trained on it. Escalated the issue to group director experience and CLINICAL THERAPIST. Awaiting to hear back Preventative health counseling performed for 17 minutes dvt ppx- lovenox History Interval history: Review of systems Constitutional: No fevers, no malaise, no joint pains CVS: No chest pain, denies orthopnea or lower extremity swelling GI: No abdominal pain, no diarrhea, no vomiting, no constipation Respiratory: Complaining of shortness of breath which has been very severe. Hospitalist Physical - Physical exam Narrative exam: General.: Mild distress HEENT: Moist mucous membranes, extraocular muscles intact, no lymphadenopathy Neck: supple Cardiac: S1-S2 heard Lungs: Decreased air entry, faint expiratory wheezing Abdomen: soft , nontender, nondistended, bowel sounds positive Extremities: No edema Skin: no rash or lesions Neurologic: no gross focal deficits Psych: calm, and cooperative - Constitutional Vitals: Temp Pulse Resp BP Pulse Ox 97.9 F 87 18 137/94 98 07/20/19 05:28 07/20/19 08:57 07/20/19 08:57 07/20/19 05:28 07/20/19 09:14 General appearance: Present: no acute distress Results - Labs CBC & Chem 7: 07/18/19 04:17 07/18/19 04:17 Labs: Laboratory Last Values WBC 7.0 K/mm3 (4.5-11.0) 07/18/19 04:17 RBC 5.25 M/mm3 (3.65-5.03) H 07/18/19 04:17 Hgb 19.1 gm/dl (10.1-14.3) H 07/18/19 04:17 Hct 58.4 % (30.3-42.9) H* 07/18/19 04:17 MCV 111 fl (79-97) H 07/18/19 04:17 MCH 36 pg (28-32) H 07/18/19 04:17 MCHC 33 % (30-34) 07/18/19 04:17 RDW 15.5 % (13.2-15.2) H 07/18/19 04:17 Plt Count 171 K/mm3 (140-440) 07/18/19 04:17 Lymph % (Auto) 6.6 % (13.4-35.0) L 07/18/19 04:17 [place] % (Auto) 4.5 % (0.0-7.3) 07/18/19 04:17 Eos % (Auto) 0.0 % (0.0-4.3) 07/18/19 04:17 Baso % (Auto) 0.1 % (0.0-1.8) 07/18/19 04:17 Lymph # 0.5 K/mm3 (1.2-5.4) L 07/18/19 04:17 [place] # 0.3 K/mm3 (0.0-0.8) 07/18/19 04:17 Eos # 0.0 K/mm3 (0.0-0.4) 07/18/19 04:17 Baso # 0.0 K/mm3 (0.0-0.1) 07/18/19 04:17 Seg Neutrophils % 88.8 % (40.0-70.0) H 07/18/19 04:17 Seg Neutrophils # 6.2 K/mm3 (1.8-7.7) 07/18/19 04:17 POC ABG pH 7.355 (7.35-7.45) 07/17/19 17:51 POC ABG pCO2 69.3 (35-45) H 07/17/19 17:51 POC ABG pO2 63 (80-105) L 07/17/19 17:51 POC ABG HCO3 38.7 (22-26 mml/L) 07/17/19 17:51 POC ABG Total CO2 41 (23-27mmol/L) 07/17/19 17:51 POC ABG O2 Sat 89 07/17/19 17:51 POC ABG Base Excess 13 ((-2) - (+3)mmol/L) 07/17/19 17:51 FiO2 35 % 07/17/19 17:51 Sodium 141 mmol/L (137-145) 07/18/19 04:17 Potassium 5.0 mmol/L (3.6-5.0) 07/18/19 04:17 Chloride 96.3 mmol/L (98-107) L 07/18/19 04:17 Carbon Dioxide 32 mmol/L (22-30) H 07/18/19 04:17 Anion Gap 18 mmol/L 07/18/19 04:17 BUN 22 mg/dL (7-17) H 07/18/19 04:17 Creatinine 0.6 mg/dL (0.7-1.2) L 07/18/19 04:17 Estimated GFR > 60 ml/min 07/18/19 04:17 BUN/Creatinine Ratio 37 % 07/18/19 04:17 Glucose 153 mg/dL (65-100) H 07/18/19 04:17 Lactic Acid 1.00 mmol/L (0.7-2.0) 07/17/19 11:56 Calcium 9.0 mg/dL (8.4-10.2) 07/18/19 04:17 Magnesium 2.60 mg/dL (1.7-2.3) H 07/17/19 16:23 Iron 46 ug/dL (37-170) 07/19/19 14:06 TIBC 396 mcg/dL (250-450) 07/19/19 14:06 Ferritin 65.0 ng/mL (13.0-400.0) 07/19/19 14:06 Total Bilirubin 0.50 mg/dL (0.1-1.2) 07/18/19 04:17 AST 39 units/L (5-40) 07/18/19 04:17 ALT 76 units/L (7-56) H 07/18/19 04:17 Alkaline Phosphatase 67 units/L (35-129) 07/18/19 04:17 Total Creatine Kinase 59 units/L (30-135) 07/17/19 11:56 CK-MB (CK-2) 4.9 ng/mL (0.0-4.0) H 07/17/19 11:56 CK-MB (CK-2) Rel Index 8.3 (0-4) H 07/17/19 11:56 Troponin T < 0.010 ng/mL (0.00-0.029) 07/17/19 11:56 NT-Pro-B Natriuret Pep 1446 pg/mL (0-900) H 07/17/19 12:07 Total Protein 6.5 g/dL (6.3-8.2) 07/18/19 04:17 Albumin 3.9 g/dL (3.9-5) 07/18/19 04:17 Albumin/Globulin Ratio 1.5 % 07/18/19 04:17 Vitamin B12 1088 pg/mL (211-911) H 07/19/19 14:06 Folate > 20 ng/mL (7.3-26.0) 07/19/19 14:06 TSH 1.510 mlU/mL (0.270-4.200) 07/17/19 16:23 Free T4 1.00 ng/dL (0.76-1.46) 07/17/19 16:23 Active Medications - Current Medications Current Medications: Generic Name Dose Route Start Last Admin Trade Name Freq PRN Reason Stop Dose Admin Albuterol 2.5 mg 07/17/19 14:39 Proventil IH Q3HRT PRN Shortness Of Breath Albuterol/Ipratropium 1 ampul 07/19/19 08:00 07/20/19 09:07 Duoneb *Not For Prn Use* IH Not Given TIDRT SARTHAK Amlodipine Besylate 10 mg 07/19/19 10:00 07/19/19 09:58 Amlodipine PO 10 mg QDAY SARTHAK Administration Arformoterol Tartrate 15 mcg 07/18/19 12:15 07/20/19 08:57 Brovana Nebu IH 15 mcg Q12HRT SARTHAK Administration Azithromycin 500 mg 07/18/19 16:00 11/03/19 15:39 Zithromax PO 500 mg Q24H SARTHAK Administration Budesonide 0.5 mg 07/18/19 12:15 07/20/19 08:57 Pulmicort IH 0.5 mg Q12HRT SARTHAK Administration Enoxaparin Sodium 40 mg 07/18/19 22:00 07/19/19 22:12 Enoxaparin SUB-Q 40 mg QDAY@2200 SARTHAK Administration Furosemide 40 mg 07/17/19 18:00 07/20/19 06:19 Lasix IV 40 mg 0600,1800 SARTHAK Administration Hydralazine HCl 10 mg 07/19/19 08:41 07/20/19 00:16 Apresoline IV 10 mg Q4HR PRN Administration BP >160/100 Methylprednisolone Sodium Succinate 125 mg 07/18/19 22:00 07/20/19 06:19 Solu-Medrol IV 125 mg Q8HR SARTHAK Administration Nicotine 14 mg 07/17/19 00:30 07/19/19 09:56 Habitrol TD 14 mg QDAY SARTHAK Administration Sodium Chloride 10 ml 07/17/19 22:00 07/19/19 22:13 Sodium Chloride Flush Syringe 10 Ml IV 10 ml BID SARTHAK Administration Sodium Chloride 10 ml 07/17/19 14:39 Sodium Chloride Flush Syringe 10 Ml IV PRN PRN LINE FLUSH
--- NOTE | 2019-07-20 10:21 | Progress Note ---
Assessment and Plan Pt with COPD exacerbation, acute pronchitis, suspected KUSUM/OHS, polycuthemia. She states sob is improving. She appears euvolemic; echo, CXR and chest CTA are unremarkable -- acute HFpEF seems unlikely based on her presentation. D/c IV lasix. Currently stable cardiac status. Nothing further to add from cardiac perspective at this time. Will sign off. Recommend pt follow up in our office with Dr. Adkins within 1-2 weeks of discharge ([phone]). The patient has been seen in conjunction with Dr. Sánchez who agrees with the assessment and plan of care. - Patient Problems (1) Acute hypoxemic respiratory failure Current Visit: Yes Status: Acute (2) COPD exacerbation Current Visit: Yes Status: Acute (3) Acute bronchitis Current Visit: Yes Status: Acute (4) Sleep apnea Current Visit: Yes Status: Suspected (5) Obesity hypoventilation syndrome Current Visit: Yes Status: Suspected (6) Polycythemia Current Visit: Yes Status: Chronic (7) Tobacco abuse Current Visit: Yes Status: Chronic (8) HTN (hypertension) Current Visit: Yes Status: Chronic Subjective Date of service: 07/20/19 Principal diagnosis: COPD Interval history: pt resting in bed, states sob is improving. remains on O2 via venti mask. Objective Last Vital Signs Temp 97.9 F 07/20/19 05:28 Pulse 87 07/20/19 08:57 Resp 18 07/20/19 08:57 BP 137/94 07/20/19 05:28 Pulse Ox 98 07/20/19 09:14 - Physical Examination General: No Apparent Distress HEENT: Positive: PERRL Neck: Positive: neck supple Cardiac: Positive: Reg Rate and Rhythm, S1/S2 Lungs: Positive: Decreased Breath Sounds Neuro: Positive: Grossly Intact Abdomen: Positive: Unremarkable Skin: Positive: Clear Musculoskeletal: Normal Range of Motion Extremities: Present: normal - Imaging and Cardiology Echo: report reviewed (07/17/19: EF 55-60%, septal wall hypertrophy ) Chamber hypertrophy or enlargement: left atrial enlargement
[2019-07-20] MEDS: NICOTINE 14 MG/24 HR PATCH TD SCH ×2 (10:46→10:47)
[2019-07-20] MEDS: amLODIPine 10 MG TAB PO SCH (10:47)
--- NOTE | 2019-07-20 12:22 | Progress Note ---
Assessment and Plan 58 y/o female with acute respiratory failure from COPD exacerbation. 1. Per patient feeling better. asked her nurse to check pulse ox off oxygen mask. Most likely will be low but will try to get down to [place] today. 2. Would start to taper steroids. Can place on 60q8 3. Smoking cessation discussed at bedside this am 4. Will continue to follow. Subjective Date of service: 07/20/19 Principal diagnosis: COPD Interval history: No acute events. Eating lunch now off oxygen. Lips appear blueish but in no distress. Worried about needing oxygen and not being able to take care of her Uncle. Objective Vital Signs - 12hr 07/20/19 07/20/19 07/20/19 00:33 05:28 08:57 Temperature 97.9 F Pulse Rate 75 74 Pulse Rate [ 87 Anterior Bilateral Throughout] Respiratory 14 20 Rate Respiratory 18 Rate [Anterior Bilateral Throughout] Blood Pressure 137/94 O2 Sat by Pulse 93 93 Oximetry 07/20/19 07/20/19 09:14 10:47 Temperature Pulse Rate 83 Pulse Rate [ Anterior Bilateral Throughout] Respiratory Rate Respiratory Rate [Anterior Bilateral Throughout] Blood Pressure 157/95 O2 Sat by Pulse 98 Oximetry Constitutional: no acute distress, alert, other (sincerely obese) ENT: oropharynx moist, other (crowded oropharynx) Neck: supple, no lymphadenopathy Ascultation: Bilateral: diminished breath sounds, rhonchi Gastrointestinal: other (obese) Extremities: edema (trace edema) CBC and BMP: 07/18/19 04:17 07/18/19 04:17 ABG, PT/INR, D-dimer: ABG POC ABG pH 7.355 (7.35-7.45) 07/17/19 17:51 POC ABG pCO2 69.3 (35-45) H 07/17/19 17:51 POC ABG pO2 63 (80-105) L 07/17/19 17:51 POC ABG HCO3 38.7 (22-26 mml/L) 07/17/19 17:51 POC ABG Total CO2 41 (23-27mmol/L) 07/17/19 17:51 POC ABG O2 Sat 89 07/17/19 17:51 Abnormal lab findings: Abnormal Labs 07/17/19 07/17/19 07/17/19 11:56 11:56 11:56 RBC Hgb 18.2 H Hct 55.1 H* MCV 112 H MCH 37 H RDW 15.9 H Lymph % (Auto) [place] % (Auto) 10.7 H Lymph # 0.9 L Seg Neutrophils % 74.8 H POC ABG pCO2 POC ABG pO2 Potassium 5.1 H Chloride Carbon Dioxide BUN 18 H Creatinine 0.5 L Glucose Magnesium AST 44 H ALT 75 H CK-MB (CK-2) 4.9 H CK-MB (CK-2) Rel Index 8.3 H NT-Pro-B Natriuret Pep Vitamin B12 07/17/19 07/17/19 07/17/19 12:07 16:23 17:51 RBC Hgb Hct MCV MCH RDW Lymph % (Auto) [place] % (Auto) Lymph # Seg Neutrophils % POC ABG pCO2 69.3 H POC ABG pO2 63 L Potassium Chloride Carbon Dioxide BUN Creatinine Glucose Magnesium 2.60 H AST ALT CK-MB (CK-2) CK-MB (CK-2) Rel Index NT-Pro-B Natriuret Pep 1446 H Vitamin B12 07/18/19 07/18/19 07/19/19 04:17 04:17 14:06 RBC 5.25 H Hgb 19.1 H Hct 58.4 H* MCV 111 H MCH 36 H RDW 15.5 H Lymph % (Auto) 6.6 L [place] % (Auto) Lymph # 0.5 L Seg Neutrophils % 88.8 H POC ABG pCO2 POC ABG pO2 Potassium Chloride 96.3 L Carbon Dioxide 32 H BUN 22 H Creatinine 0.6 L Glucose 153 H Magnesium AST ALT 76 H CK-MB (CK-2) CK-MB (CK-2) Rel Index NT-Pro-B Natriuret Pep Vitamin B12 1088 H
[2019-07-20] MEDS: AZITHROMYCIN 250 MG TAB PO SCH (17:57)
[2019-07-20] MEDS ORDERED: POLYETHYLENE GLYCOL 3350 17 GM POWDER PO PRN (18:13)
[2019-07-20] MEDS ORDERED: SENNOSIDES/DOCUSATE SODIUM 8.6/50 MG TAB PO PRN (18:13)
[2019-07-20] MEDS: ENOXAPARIN 40 MG/0.4 ML INJ SUB-Q SCH (21:29)
[2019-07-21] MEDS: methylPREDNISolone Sod Succinate 125 MG/2 ML INJ IV SCH ×3 (05:40→22:11)
--- NOTE | 2019-07-21 06:32 | Hem/Onc Progress Note ---
Assessment and Plan 1. Polycythemia, presumed to be secondary because of obesity, sleep apnea and smoking. I discussed with the patient regarding quitting smoking. Pulmonary team is following her. I had discussed with the patient regarding phlebotomy and will look into the same. IV access is poor. I spoke to the hospitalist team. 2. MCV is high. TSH, B12, folate is normal. We will follow the trend. 3. Mild abnormal liver function test. This may have a role in elevated MCV. 4. History of chronic obstructive pulmonary disease. 5. History of smoking. 6. History of sleep apnea. We will do JAK2 studies and follow the patient. phlebotomy was ordered - not done polycythemia - likely secondary b12- folate - iron ferritin - normal - Patient Problems (1) Polycythemia Current Visit: Yes Status: Chronic Subjective Date of service: 07/21/19 Principal diagnosis: polycythemia Interval history: on CPAP Objective - Exam Narrative Exam: Pain - none General appearance - on CPAP Performance status - limited self care Eyes - no icterus, ENT - no bleeding LNs cervical not palpable Neck - no LN Respiratory Normal Breath sounds - CTA anteriorly CVS S1 S2 + Extremities edema+ General GI Soft Rectal deferred female - deferred Skin warm Musculoskeletal moves limbs Neurologically follows commands - Constitutional Vitals: Last Vital Signs Temp 97.8 F 07/21/19 05:12 Pulse 81 07/21/19 05:12 Resp 18 07/21/19 05:12 BP 174/96 07/21/19 05:12 Pulse Ox 95 07/21/19 05:12 Medications & Allergies - Medications Allergies/Adverse Reactions: Allergies codeine Adverse Reaction (Verified 07/17/19 11:16) Nausea Home Medications: Home Medications Medication Instructions Recorded Confirmed Last Taken Type Amoxicillin/K Clav Tab 875.125 mg PO BIDWM MDD 2 tabs 07/18/19 07/18/19 07/17/19 History 1 tab twice per day Tiotropium Br/Olodaterol HCl 25 mcg INHALATION PRN PRN 07/18/19 07/18/19 Unknown History Active Medications: Generic Name Dose Route Start Last Admin Trade Name Freq PRN Reason Stop Dose Admin Albuterol 2.5 mg 07/17/19 14:39 Proventil IH Q3HRT PRN Shortness Of Breath Albuterol/Ipratropium 1 ampul 07/19/19 08:00 07/20/19 20:37 Duoneb *Not For Prn Use* IH 1 ampul TIDRT SARTHAK Administration Amlodipine Besylate 10 mg 07/19/19 10:00 07/20/19 10:47 Amlodipine PO 10 mg QDAY SARTHAK Administration Arformoterol Tartrate 15 mcg 07/18/19 12:15 07/20/19 20:36 Brovana Nebu IH 15 mcg Q12HRT SARTHAK Administration Azithromycin 500 mg 07/18/19 16:00 07/20/19 17:57 Zithromax PO 500 mg Q24H SARTHAK Administration Budesonide 0.5 mg 07/18/19 12:15 07/20/19 20:36 Pulmicort IH 0.5 mg Q12HRT SARTHAK Administration Enoxaparin Sodium 40 mg 07/18/19 22:00 07/20/19 21:29 Enoxaparin SUB-Q 40 mg QDAY@2200 SARTHAK Administration Hydralazine HCl 10 mg 07/19/19 08:41 07/20/19 00:16 Apresoline IV 10 mg Q4HR PRN Administration BP >160/100 Methylprednisolone Sodium Succinate 125 mg 07/18/19 22:00 07/21/19 05:40 Solu-Medrol IV 125 mg Q8HR SARTHAK Administration Nicotine 14 mg 07/17/19 00:30 07/20/19 10:47 Habitrol TD 14 mg QDAY SARTHAK Administration Polyethylene Glycol 17 gm 07/20/19 18:13 07/20/19 21:47 Miralax 3350 PO 17 gm QDAY PRN Administration Constipation Senna/Docusate Sodium 2 tab 07/20/19 18:13 Senokot S PO Q12H PRN Laxative Effect Sodium Chloride 10 ml 07/17/19 22:00 07/20/19 21:29 Sodium Chloride Flush Syringe 10 Ml IV 10 ml BID SARTHAK Administration Sodium Chloride 10 ml 07/17/19 14:39 Sodium Chloride Flush Syringe 10 Ml IV PRN PRN LINE FLUSH
[2019-07-21 08:38] LABS: Mean Corpuscular HGB Conc 33 % (30-34); Mean Corpuscular Volume 110 fl (79-97); Red Blood Count 5.86 M/mm3 (3.65-5.03); Red Cell Distribution Width 14.8 % (13.2-15.2)
[2019-07-21 08:42] LABS: Hematocrit 64.4 % (30.3-42.9); Hemoglobin 21.2 gm/dl (10.1-14.3)
[2019-07-21] MEDS: IPRATROPIUM/ALBUTEROL SULFATE 3 ML AMPUL.NEB IH SCH ×3 (08:49→19:55)
[2019-07-21] MEDS: BUDESONIDE 0.5 MG/2 ML NEBU IH SCH ×2 (08:49→19:55)
[2019-07-21] MEDS: ARFORMOTEROL 15 MCG/2 ML NEBU IH SCH ×2 (08:49→19:55)
[2019-07-21 09:02] LABS: Alanine Aminotransferase 62 units/L (7-56); BUN/Creatinine Ratio 80; Blood Urea Nitrogen 48 mg/dL (7-17); Calcium 9.8 mg/dL (8.4-10.2); Hemolysis Index 13
[2019-07-21] MEDS: amLODIPine 10 MG TAB PO SCH (09:34)
[2019-07-21] MEDS: NICOTINE 14 MG/24 HR PATCH TD SCH (09:35)
[2019-07-21 10:28] LABS: Basophils % (Manual) 0 % (0.0-1.8); Eosinophils % (Manual) 0 % (0.0-4.3); Total Cells Counted 100
[2019-07-21 10:29] LABS: Platelet Count 165 K/mm3 (140-440); Platelet Estimate Consistent w Auto; RBC Morphology Normal
--- NOTE | 2019-07-21 16:51 | Progress Note ---
Assessment and Plan Assessment and plan: Patient is a 58-year-old woman with history of obesity, COPD, tobacco dependency and Polycythemia who [facility] with shortness of breath x 1 week. * CTA chest FINDINGS: Normal heart size with silhouette slightly exaggerated due to prominent right cardiophrenic angle fat pad. No effusions. No aortic aneurysm, dissection or suspicious pulmonary arterial filling defects. Mild pulmonary arterial hypertension. Mild aortic arch atherosclerotic calcifications noted. No size significant adenopathy. Normal airway. Unremarkable thyroid. Slight bibasilar atelectasis. Otherwise unremarkable lungs. Imaged upper abdomen reveals no acute significant abnormality. Subtle fatty hepatic infiltration not entirely excluded. Small bilateral extrarenal pelves may be incompletely imaged. Mild multilevel spinal degenerative changes as spurring and few endplate irregularities. IMPRESSION: No CT evidence of p ulmonary embolism with few other incidental findings, as above. Acute hypoxic respiratory failure -Oxygen supplementation -Evaluate for home oxygen, this was discussed with case management Acute Copd exacerbation; steroids, nebs, pulmonology consults, aggressive chest PT -Was on Stiolto and was following with Dr. Goff. Has not followed up or taken the medications due to lack of insurance CHF was ruled out CHF was suspected but highly doubt CHF based on my exam. Patient appears euvolemic and is laying flat Discontinued diuretics, echo shows preserved EF, cardiology consult pending Tobacco abuse/dependence Smoking cessation counseling performed for 10 minutes, nicotine patches when necessary Polycythemia -Polycythemia is most likely due to smoking. Hematology consult -Patient admits that she was following up as an outpatient for for polycythemia, and it is not new -Discussed with Dr. Gant, he plans to do phlebotomy. However nursing staff are not trained on it. Escalated the issue to [employer] G[employer] DESIGN[employer] and head of lab Kat Mckeon called me and informed me that we do not do phlembotomy here and Dr. Gant spoke to [facility] who doesn't do it but [facility] or [facility] does it per Kat. Dr. Gant will investigate. dvt ppx- lovenox History Interval history: Patient was seen and examined. Follow-up on current diagnosis of COPD, still with O2 but now on nasal canula. No overnight events reported to me. Patient denies any chest pain, nausea/vomiting or severe headaches. Imaging, nursing note, chart, labs and old chart reviewed. Discussed with patient. Hospitalist Physical - Physical exam Narrative exam: Gen: WDWN, NAD, Awake, Alert, Orientated HEENT: NCAT, EOMI, PERRL, OP Clear Neck: supple, no adenopathy, no thyromegaly, no JVD CVS/Heart: RRR, normal S1S2, pulses present bilaterally Chest/Lungs: diminished bs bilateral with bilateral rhonchi, Symmetrical chest expansion, good air entry bilaterally GI/Abdomen: soft, NTND, good bowel sounds, no guarding or rebound /Bladder: no suprapubic tenderness, no CVA or paraspinal tenderness Extermity/Skin: no c/c/e, no obvious rash MSK: FROM x 4 Neuro: CN 2-12 grossly intact, no new focal deficits Psych: calm - Constitutional Vitals: Temp Pulse Resp BP Pulse Ox 97.8 F 105 H 20 146/84 92 07/21/19 11:43 07/21/19 14:16 07/21/19 14:16 07/21/19 11:43 07/21/19 14:17 General appearance: Present: no acute distress Results - Labs CBC & Chem 7: 07/21/19 07:48 07/21/19 07:48 Labs: Laboratory Last Values WBC 5.7 K/mm3 (4.5-11.0) 07/21/19 07:48 RBC 5.86 M/mm3 (3.65-5.03) H 07/21/19 07:48 Hgb 21.2 gm/dl (10.1-14.3) H* 07/21/19 07:48 Hct 64.4 % (30.3-42.9) H* 07/21/19 07:48 MCV 110 fl (79-97) H 07/21/19 07:48 MCH 36 pg (28-32) H 07/21/19 07:48 MCHC 33 % (30-34) 07/21/19 07:48 RDW 14.8 % (13.2-15.2) 07/21/19 07:48 Plt Count 165 K/mm3 (140-440) 07/21/19 07:48 Lymph % (Auto) 6.6 % (13.4-35.0) L 07/18/19 04:17 [place] % (Auto) 4.5 % (0.0-7.3) 07/18/19 04:17 Eos % (Auto) 0.0 % (0.0-4.3) 07/18/19 04:17 Baso % (Auto) 0.1 % (0.0-1.8) 07/18/19 04:17 Lymph # 0.5 K/mm3 (1.2-5.4) L 07/18/19 04:17 [place] # 0.3 K/mm3 (0.0-0.8) 07/18/19 04:17 Eos # 0.0 K/mm3 (0.0-0.4) 07/18/19 04:17 Baso # 0.0 K/mm3 (0.0-0.1) 07/18/19 04:17 Add Manual Diff Complete 07/21/19 07:48 Total Counted 100 07/21/19 07:48 Seg Neutrophils % Ux Designer 07/21/19 07:48 Seg Neuts % (Manual) 95.0 % (40.0-70.0) H 07/21/19 07:48 Band Neutrophils % 0 % 07/21/19 07:48 Lymphocytes % (Manual) 3.0 % (13.4-35.0) L 07/21/19 07:48 Reactive Lymphs % (Man) 0 % 07/21/19 07:48 Monocytes % (Manual) 2.0 % (0.0-7.3) 07/21/19 07:48 Eosinophils % (Manual) 0 % (0.0-4.3) 07/21/19 07:48 Basophils % (Manual) 0 % (0.0-1.8) 07/21/19 07:48 Metamyelocytes % 0 % 07/21/19 07:48 Myelocytes % 0 % 07/21/19 07:48 Promyelocytes % 0 % 07/21/19 07:48 Blast Cells % 0 % 07/21/19 07:48 Nucleated RBC % Not Reportable 07/21/19 07:48 Seg Neutrophils # 6.2 K/mm3 (1.8-7.7) 07/18/19 04:17 Seg Neutrophils # Man 5.4 K/mm3 (1.8-7.7) 07/21/19 07:48 Band Neutrophils # 0.0 K/mm3 07/21/19 07:48 Lymphocytes # (Manual) 0.2 K/mm3 (1.2-5.4) L 07/21/19 07:48 Abs React Lymphs (Man) 0.0 K/mm3 07/21/19 07:48 Monocytes # (Manual) 0.1 K/mm3 (0.0-0.8) 07/21/19 07:48 Eosinophils # (Manual) 0.0 K/mm3 (0.0-0.4) 07/21/19 07:48 Basophils # (Manual) 0.0 K/mm3 (0.0-0.1) 07/21/19 07:48 Metamyelocytes # 0.0 K/mm3 07/21/19 07:48 Myelocytes # 0.0 K/mm3 07/21/19 07:48 Promyelocytes # 0.0 K/mm3 07/21/19 07:48 Blast Cells # 0.0 K/mm3 07/21/19 07:48 WBC Morphology Not Reportable 07/21/19 07:48 Hypersegmented Neuts Not Reportable 07/21/19 07:48 Hyposegmented Neuts Not Reportable 07/21/19 07:48 Hypogranular Neuts Not Reportable 07/21/19 07:48 Smudge Cells Not Reportable 07/21/19 07:48 Toxic Granulation Not Reportable 07/21/19 07:48 Toxic Vacuolation Not Reportable 07/21/19 07:48 Dohle Bodies Not Reportable 07/21/19 07:48 Pelger-Huet Anomaly Not Reportable 07/21/19 07:48 Marge Rods Not Reportable 07/21/19 07:48 Platelet Estimate Consistent w auto 07/21/19 07:48 Clumped Platelets Not Reportable 07/21/19 07:48 Plt Clumps, EDTA Not Reportable 07/21/19 07:48 Large Platelets Not Reportable 07/21/19 07:48 Giant Platelets Not Reportable 07/21/19 07:48 Platelet Satelliting Not Reportable 07/21/19 07:48 Plt Morphology Comment Not Reportable 07/21/19 07:48 RBC Morphology Normal 07/21/19 07:48 Dimorphic RBCs Not Reportable 07/21/19 07:48 Polychromasia Not Reportable 07/21/19 07:48 Hypochromasia Not Reportable 07/21/19 07:48 Poikilocytosis Not Reportable 07/21/19 07:48 Anisocytosis Not Reportable 07/21/19 07:48 Microcytosis Not Reportable 07/21/19 07:48 Macrocytosis Not Reportable 07/21/19 07:48 Spherocytes Not Reportable 07/21/19 07:48 Pappenheimer Bodies Not Reportable 07/21/19 07:48 Sickle Cells Not Reportable 07/21/19 07:48 Target Cells Not Reportable 07/21/19 07:48 Tear Drop Cells Not Reportable 07/21/19 07:48 Ovalocytes Not Reportable 07/21/19 07:48 Helmet Cells Not Reportable 07/21/19 07:48 Vickers-Sebree Bodies Not Reportable 07/21/19 07:48 Helen Rings Not Reportable 07/21/19 07:48 Rodney Cells Not Reportable 07/21/19 07:48 Bite Cells Not Reportable 07/21/19 07:48 Crenated Cell Not Reportable 07/21/19 07:48 Elliptocytes Not Reportable 07/21/19 07:48 Acanthocytes (Spur) Not Reportable 07/21/19 07:48 Rouleaux Not Reportable 07/21/19 07:48 Hemoglobin C Crystals Not Reportable 07/21/19 07:48 Schistocytes Not Reportable 07/21/19 07:48 Malaria parasites Not Reportable 07/21/19 07:48 Matias Bodies Not Reportable 07/21/19 07:48 Hem Pathologist Commnt No 07/21/19 07:48 POC ABG pH 7.355 (7.35-7.45) 07/17/19 17:51 POC ABG pCO2 69.3 (35-45) H 07/17/19 17:51 POC ABG pO2 63 (80-105) L 07/17/19 17:51 POC ABG HCO3 38.7 (22-26 mml/L) 07/17/19 17:51 POC ABG Total CO2 41 (23-27mmol/L) 07/17/19 17:51 POC ABG O2 Sat 89 07/17/19 17:51 POC ABG Base Excess 13 ((-2) - (+3)mmol/L) 07/17/19 17:51 FiO2 35 % 07/17/19 17:51 Sodium 140 mmol/L (137-145) 07/21/19 07:48 Potassium 3.5 mmol/L (3.6-5.0) L D 07/21/19 07:48 Chloride 89.4 mmol/L (98-107) L 07/21/19 07:48 Carbon Dioxide 34 mmol/L (22-30) H 07/21/19 07:48 Anion Gap 20 mmol/L 07/21/19 07:48 BUN 48 mg/dL (7-17) H 07/21/19 07:48 Creatinine 0.6 mg/dL (0.7-1.2) L 07/21/19 07:48 Estimated GFR > 60 ml/min 07/21/19 07:48 BUN/Creatinine Ratio 80 % 07/21/19 07:48 Glucose 203 mg/dL (65-100) H 07/21/19 07:48 Lactic Acid 1.00 mmol/L (0.7-2.0) 07/17/19 11:56 Calcium 9.8 mg/dL (8.4-10.2) 07/21/19 07:48 Magnesium 2.60 mg/dL (1.7-2.3) H 07/17/19 16:23 Iron 46 ug/dL (37-170) 07/19/19 14:06 TIBC 396 mcg/dL (250-450) 07/19/19 14:06 Ferritin 65.0 ng/mL (13.0-400.0) 07/19/19 14:06 Total Bilirubin 0.90 mg/dL (0.1-1.2) 07/21/19 07:48 AST 22 units/L (5-40) 07/21/19 07:48 ALT 62 units/L (7-56) H 07/21/19 07:48 Alkaline Phosphatase 71 units/L (35-129) 07/21/19 07:48 Total Creatine Kinase 59 units/L (30-135) 07/17/19 11:56 CK-MB (CK-2) 4.9 ng/mL (0.0-4.0) H 07/17/19 11:56 CK-MB (CK-2) Rel Index 8.3 (0-4) H 07/17/19 11:56 Troponin T < 0.010 ng/mL (0.00-0.029) 07/17/19 11:56 NT-Pro-B Natriuret Pep 1446 pg/mL (0-900) H 07/17/19 12:07 Total Protein 6.9 g/dL (6.3-8.2) 07/21/19 07:48 Albumin 4.0 g/dL (3.9-5) 07/21/19 07:48 Albumin/Globulin Ratio 1.4 % 07/21/19 07:48 Vitamin B12 1088 pg/mL (211-911) H 07/19/19 14:06 Folate > 20 ng/mL (7.3-26.0) 07/19/19 14:06 TSH 1.510 mlU/mL (0.270-4.200) 07/17/19 16:23 Free T4 1.00 ng/dL (0.76-1.46) 07/17/19 16:23 Active Medications - Current Medications Current Medications: Generic Name Dose Route Start Last Admin Trade Name Freq PRN Reason Stop Dose Admin Albuterol 2.5 mg 07/17/19 14:39 Proventil IH Q3HRT PRN Shortness Of Breath Albuterol/Ipratropium 1 ampul 07/19/19 08:00 07/21/19 13:55 Duoneb *Not For Prn Use* IH 1 ampul TIDRT SARTHAK Administration Amlodipine Besylate 10 mg 07/19/19 10:00 07/21/19 09:34 Amlodipine PO 10 mg QDAY SARTHAK Administration Arformoterol Tartrate 15 mcg 07/18/19 12:15 07/21/19 08:49 Brovana Nebu IH 15 mcg Q12HRT SARTHAK Administration Azithromycin 500 mg 07/18/19 16:00 07/20/19 17:57 Zithromax PO 07/22/19 16:01 500 mg Q24H SARTHAK Administration Budesonide 0.5 mg 07/18/19 12:15 07/21/19 08:49 Pulmicort IH 0.5 mg Q12HRT SARTHAK Administration Enoxaparin Sodium 40 mg 07/18/19 22:00 07/20/19 21:29 Enoxaparin SUB-Q 40 mg QDAY@2200 SARTHAK Administration Hydralazine HCl 10 mg 07/19/19 08:41 07/20/19 00:16 Apresoline IV 10 mg Q4HR PRN Administration BP >160/100 Methylprednisolone Sodium Succinate 125 mg 07/18/19 22:00 07/21/19 05:40 Solu-Medrol IV 125 mg Q8HR SARTHAK Administration Nicotine 14 mg 07/17/19 00:30 07/21/19 09:35 Habitrol TD 14 mg QDAY SARTHAK Administration Polyethylene Glycol 17 gm 07/20/19 18:13 07/20/19 21:47 Miralax 3350 PO 17 gm QDAY PRN Administration Constipation Senna/Docusate Sodium 2 tab 07/20/19 18:13 Senokot S PO Q12H PRN Laxative Effect Sodium Chloride 10 ml 07/17/19 22:00 07/21/19 09:36 Sodium Chloride Flush Syringe 10 Ml IV 10 ml BID SARTHAK Administration Sodium Chloride 10 ml 07/17/19 14:39 Sodium Chloride Flush Syringe 10 Ml IV PRN PRN LINE FLUSH
[2019-07-21] MEDS: AZITHROMYCIN 250 MG TAB PO SCH (19:20)
[2019-07-21] MEDS: ENOXAPARIN 40 MG/0.4 ML INJ SUB-Q SCH (22:11)
[2019-07-22] MEDS: methylPREDNISolone Sod Succinate 125 MG/2 ML INJ IV SCH (06:27)
--- NOTE | 2019-07-22 07:19 | Hem/Onc Progress Note ---
Assessment and Plan 1. Polycythemia, presumed to be secondary because of obesity, sleep apnea and smoking. I discussed with the patient regarding quitting smoking. Pulmonary team is following her. I had discussed with the patient regarding phlebotomy and will look into the same. IV access is poor. I spoke to the hospitalist team. 2. MCV is high. TSH, B12, folate is normal. We will follow the trend. 3. Mild abnormal liver function test. This may have a role in elevated MCV. 4. History of chronic obstructive pulmonary disease. 5. History of smoking. 6. History of sleep apnea. We will do JAK2 studies and follow the patient. phlebotomy was ordered - not done polycythemia - likely secondary - JAK2 pending b12- folate - iron ferritin - normal d/w dr garcia called [facility] - they dont come to hospital and do phlebotomy Pt needs simple phlebotomy - like blood donation volume, I do this in my clinic In hospital - usually blood bank does - but our blood bank informed me - they dont - Patient Problems (1) Polycythemia Current Visit: Yes Status: Chronic Subjective Date of service: 07/22/19 Principal diagnosis: polycythemia Interval history: feeling ok - wants to go home Objective - Exam Narrative Exam: Pain - none General appearance - on CPAP Performance status - limited self care Eyes - no icterus, ENT - no bleeding LNs cervical not palpable Neck - no LN Respiratory Normal Breath sounds - CTA anteriorly CVS S1 S2 + Extremities edema+ General GI Soft Rectal deferred female - deferred Skin warm Musculoskeletal moves limbs Neurologically follows commands - Constitutional Vitals: Last Vital Signs Temp 97.3 F L 07/22/19 05:05 Pulse 85 07/22/19 05:05 Resp 20 07/22/19 05:05 BP 161/90 07/22/19 05:05 Pulse Ox 94 07/22/19 05:05 - Labs Lab Results: Laboratory Results - last 24 hr 07/21/19 07/21/19 07:48 07:48 WBC 5.7 RBC 5.86 H Hgb 21.2 H* Hct 64.4 H* MCV 110 H MCH 36 H MCHC 33 RDW 14.8 Plt Count 165 Add Manual Diff Complete Total Counted 100 Seg Neutrophils % Test Kitchen Home Economist Seg Neuts % (Manual) 95.0 H Band Neutrophils % 0 Lymphocytes % (Manual) 3.0 L Reactive Lymphs % (Man) 0 Monocytes % (Manual) 2.0 Eosinophils % (Manual) 0 Basophils % (Manual) 0 Metamyelocytes % 0 Myelocytes % 0 Promyelocytes % 0 Blast Cells % 0 Nucleated RBC % Not Reportable Seg Neutrophils # Man 5.4 Band Neutrophils # 0.0 Lymphocytes # (Manual) 0.2 L Abs React Lymphs (Man) 0.0 Monocytes # (Manual) 0.1 Eosinophils # (Manual) 0.0 Basophils # (Manual) 0.0 Metamyelocytes # 0.0 Myelocytes # 0.0 Promyelocytes # 0.0 Blast Cells # 0.0 WBC Morphology Not Reportable Hypersegmented Neuts Not Reportable Hyposegmented Neuts Not Reportable Hypogranular Neuts Not Reportable Smudge Cells Not Reportable Toxic Granulation Not Reportable Toxic Vacuolation Not Reportable Dohle Bodies Not Reportable Pelger-Huet Anomaly Not Reportable Marge Rods Not Reportable Platelet Estimate Consistent w auto Clumped Platelets Not Reportable Plt Clumps, EDTA Not Reportable Large Platelets Not Reportable Giant Platelets Not Reportable Platelet Satelliting Not Reportable Plt Morphology Comment Not Reportable RBC Morphology Normal Dimorphic RBCs Not Reportable Polychromasia Not Reportable Hypochromasia Not Reportable Poikilocytosis Not Reportable Anisocytosis Not Reportable Microcytosis Not Reportable Macrocytosis Not Reportable Spherocytes Not Reportable Pappenheimer Bodies Not Reportable Sickle Cells Not Reportable Target Cells Not Reportable Tear Drop Cells Not Reportable Ovalocytes Not Reportable Helmet Cells Not Reportable Vickers-[place]ris Bodies Not Reportable [place] Rings Not Reportable [place] Cells Not Reportable Bite Cells Not Reportable Crenated Cell Not Reportable Elliptocytes Not Reportable Acanthocytes (Spur) Not Reportable Rouleaux Not Reportable Hemoglobin C Crystals Not Reportable Schistocytes Not Reportable Malaria parasites Not Reportable Matias Bodies Not Reportable Hem Pathologist Commnt No Sodium 140 Potassium 3.5 L D Chloride 89.4 L Carbon Dioxide 34 H Anion Gap 20 BUN 48 H Creatinine 0.6 L Estimated GFR > 60 BUN/Creatinine Ratio 80 Glucose 203 H Calcium 9.8 Total Bilirubin 0.90 AST 22 ALT 62 H Alkaline Phosphatase 71 Total Protein 6.9 Albumin 4.0 Albumin/Globulin Ratio 1.4 Medications & Allergies - Medications Allergies/Adverse Reactions: Allergies codeine Adverse Reaction (Verified 07/17/19 11:16) Nausea Home Medications: Home Medications Medication Instructions Recorded Confirmed Last Taken Type Amoxicillin/K Clav Tab 875.125 mg PO BIDWM MDD 2 tabs 07/18/19 07/18/19 07/17/19 History 1 tab twice per day Tiotropium Br/Olodaterol HCl 25 mcg INHALATION PRN PRN 07/18/19 07/18/19 Unknown History Active Medications: Generic Name Dose Route Start Last Admin Trade Name Freq PRN Reason Stop Dose Admin Albuterol 2.5 mg 07/17/19 14:39 Proventil IH Q3HRT PRN Shortness Of Breath Albuterol/Ipratropium 1 ampul 07/19/19 08:00 07/21/19 19:55 Duoneb *Not For Prn Use* IH 1 ampul TIDRT SARTHAK Administration Amlodipine Besylate 10 mg 07/19/19 10:00 07/21/19 09:34 Amlodipine PO 10 mg QDAY SARTHAK Administration Arformoterol Tartrate 15 mcg 07/18/19 12:15 07/21/19 19:55 Brovana Nebu IH 15 mcg Q12HRT SARTHAK Administration Azithromycin 500 mg 07/18/19 16:00 07/21/19 19:20 Zithromax PO 07/22/19 16:01 500 mg Q24H SARTHAK Administration Budesonide 0.5 mg 07/18/19 12:15 07/21/19 19:55 Pulmicort IH 0.5 mg Q12HRT SARTHAK Administration Enoxaparin Sodium 40 mg 07/18/19 22:00 07/21/19 22:11 Enoxaparin SUB-Q 40 mg QDAY@2200 SARTHAK Administration Hydralazine HCl 10 mg 07/19/19 08:41 07/20/19 00:16 Apresoline IV 10 mg Q4HR PRN Administration BP >160/100 Methylprednisolone Sodium Succinate 125 mg 07/18/19 22:00 07/22/19 06:27 Solu-Medrol IV 125 mg Q8HR SARTHAK Administration Nicotine 14 mg 07/17/19 00:30 07/21/19 09:35 Habitrol TD 14 mg QDAY SARTHAK Administration Polyethylene Glycol 17 gm 07/20/19 18:13 07/20/19 21:47 Miralax 3350 PO 17 gm QDAY PRN Administration Constipation Senna/Docusate Sodium 2 tab 07/20/19 18:13 07/22/19 06:27 Senokot S PO 2 tab Q12H PRN Administration Laxative Effect Sodium Chloride 10 ml 07/17/19 22:00 07/21/19 22:12 Sodium Chloride Flush Syringe 10 Ml IV 10 ml BID SARTHAK Administration Sodium Chloride 10 ml 07/17/19 14:39 Sodium Chloride Flush Syringe 10 Ml IV PRN PRN LINE FLUSH
--- NOTE | 2019-07-22 08:12 | Progress Note ---
Assessment and Plan Assessment and plan: Patient is a 58-year-old woman with history of obesity, COPD, tobacco dependency and Polycythemia who presents to [facility] with shortness of breath x 1 week. * CTA chest FINDINGS: Normal heart size with silhouette slightly exaggerated due to prominent right cardiophrenic angle fat pad. No effusions. No aortic aneurysm, dissection or suspicious pulmonary arterial filling defects. Mild pulmonary arterial hypertension. Mild aortic arch atherosclerotic calcifications noted. No size significant adenopathy. Normal airway. Unremarkable thyroid. Slight bibasilar atelectasis. Otherwise unremarkable lungs. Imaged upper abdomen reveals no acute significant abnormality. Subtle fatty hepatic infiltration not entirely excluded. Small bilateral extrarenal pelves may be incompletely imaged. Mild multilevel spinal degenerative changes as spurring and few endplate irregularities. IMPRESSION: No CT evidence of p ulmonary embolism with few other incidental findings, as above. Polycythemia -Polycythemia is most likely due to smoking. Hematology consult -Patient admits that she was following up as an outpatient for for polycythemia, and it is not new -Discussed with Dr. Gant, he plans to do phlebotomy. However nursing staff are not trained on it. Escalated the issue to [employer] and head of lab Kat Mckeon called me and informed me that we do not do phlebotomy here and Dr. Gant spoke to [facility] who doesn't do it but [facility] or [facility] does it per Kat. Dr. Gant will investigate. D/w Dr. Gant today, no one from [facility] or [facility] blood bank come to this hospital. Dr. Gant does phlebotomy in his office but for a wynne and he relied this to patient. So, patient can go to his office the day for this. Now, patient also has the option to donate blood, again outpatient Acute hypoxic respiratory failure -Oxygen supplementation -Evaluate for home oxygen, this was discussed with case management Acute Copd exacerbation; steroids, nebs, pulmonology consults, aggressive chest PT -Was on Stiolto and was following with Dr. Goff. Has not followed up or taken the medications due to lack of insurance CHF was ruled out CHF was suspected but highly doubt CHF based on my exam. Patient appears euvolemic and is laying flat Discontinued diuretics, echo shows preserved EF, cardiology consult pending Tobacco abuse/dependence Smoking cessation counseling performed for 10 minutes, nicotine patches when necessary dvt ppx- lovenox Disposition: continue inpatient care, once off o2 or O2 home setup (patient is uninsured) then d/c home, Patient is on 5 Liters of O2, once down to 2-3 liters then d/c home. she was 87% on 3 liters and 89% on 4 liters O2. History Interval history: Patient was seen and examined. Follow-up on current diagnosis of COPD, still with O2 but now on nasal canula. No overnight events reported to me. Patient denies any chest pain, nausea/vomiting or severe headaches. Imaging, nursing note, chart, labs and old chart reviewed. Discussed with patient. Hospitalist Physical - Physical exam Narrative exam: Gen: WDWN, NAD, Awake, Alert, Orientated x 3, bmi 38.5 HEENT: NCAT, EOMI, PERRL, OP Clear Neck: supple, no adenopathy, no thyromegaly, no JVD CVS/Heart: RRR, normal S1S2, pulses present bilaterally Chest/Lungs: diminished bs bilateral with bilateral rhonchi, Symmetrical chest expansion, good air entry bilaterally GI/Abdomen: soft, NTND, good bowel sounds, no guarding or rebound /Bladder: no suprapubic tenderness, no CVA or paraspinal tenderness Extermity/Skin: no c/c/e, no obvious rash MSK: FROM x 4 Neuro: CN 2-12 grossly intact, no new focal deficits Psych: calm - Constitutional Vitals: Temp Pulse Resp BP Pulse Ox 97.3 F L 85 20 161/90 94 07/22/19 05:05 07/22/19 05:05 07/22/19 05:05 07/22/19 05:05 07/22/19 05:05 General appearance: Present: no acute distress Results - Labs CBC & Chem 7: 07/22/19 08:16 07/21/19 07:48 Labs: Laboratory Last Values WBC 5.7 K/mm3 (4.5-11.0) 07/21/19 07:48 RBC 5.86 M/mm3 (3.65-5.03) H 07/21/19 07:48 Hgb 21.2 gm/dl (10.1-14.3) H* 07/21/19 07:48 Hct 64.4 % (30.3-42.9) H* 07/21/19 07:48 MCV 110 fl (79-97) H 07/21/19 07:48 MCH 36 pg (28-32) H 07/21/19 07:48 MCHC 33 % (30-34) 07/21/19 07:48 RDW 14.8 % (13.2-15.2) 07/21/19 07:48 Plt Count 165 K/mm3 (140-440) 07/21/19 07:48 Lymph % (Auto) 6.6 % (13.4-35.0) L 07/18/19 04:17 [place] % (Auto) 4.5 % (0.0-7.3) 07/18/19 04:17 Eos % (Auto) 0.0 % (0.0-4.3) 07/18/19 04:17 Baso % (Auto) 0.1 % (0.0-1.8) 07/18/19 04:17 Lymph # 0.5 K/mm3 (1.2-5.4) L 07/18/19 04:17 [place] # 0.3 K/mm3 (0.0-0.8) 07/18/19 04:17 Eos # 0.0 K/mm3 (0.0-0.4) 07/18/19 04:17 Baso # 0.0 K/mm3 (0.0-0.1) 07/18/19 04:17 Add Manual Diff Complete 07/21/19 07:48 Total Counted 100 07/21/19 07:48 Seg Neutrophils % Utility Mechanic 07/21/19 07:48 Seg Neuts % (Manual) 95.0 % (40.0-70.0) H 07/21/19 07:48 Band Neutrophils % 0 % 07/21/19 07:48 Lymphocytes % (Manual) 3.0 % (13.4-35.0) L 07/21/19 07:48 Reactive Lymphs % (Man) 0 % 07/21/19 07:48 Monocytes % (Manual) 2.0 % (0.0-7.3) 07/21/19 07:48 Eosinophils % (Manual) 0 % (0.0-4.3) 07/21/19 07:48 Basophils % (Manual) 0 % (0.0-1.8) 07/21/19 07:48 Metamyelocytes % 0 % 07/21/19 07:48 Myelocytes % 0 % 07/21/19 07:48 Promyelocytes % 0 % 07/21/19 07:48 Blast Cells % 0 % 07/21/19 07:48 Nucleated RBC % Not Reportable 07/21/19 07:48 Seg Neutrophils # 6.2 K/mm3 (1.8-7.7) 07/18/19 04:17 Seg Neutrophils # Man 5.4 K/mm3 (1.8-7.7) 07/21/19 07:48 Band Neutrophils # 0.0 K/mm3 07/21/19 07:48 Lymphocytes # (Manual) 0.2 K/mm3 (1.2-5.4) L 07/21/19 07:48 Abs React Lymphs (Man) 0.0 K/mm3 07/21/19 07:48 Monocytes # (Manual) 0.1 K/mm3 (0.0-0.8) 07/21/19 07:48 Eosinophils # (Manual) 0.0 K/mm3 (0.0-0.4) 07/21/19 07:48 Basophils # (Manual) 0.0 K/mm3 (0.0-0.1) 07/21/19 07:48 Metamyelocytes # 0.0 K/mm3 07/21/19 07:48 Myelocytes # 0.0 K/mm3 07/21/19 07:48 Promyelocytes # 0.0 K/mm3 07/21/19 07:48 Blast Cells # 0.0 K/mm3 07/21/19 07:48 WBC Morphology Not Reportable 07/21/19 07:48 Hypersegmented Neuts Not Reportable 07/21/19 07:48 Hyposegmented Neuts Not Reportable 07/21/19 07:48 Hypogranular Neuts Not Reportable 07/21/19 07:48 Smudge Cells Not Reportable 07/21/19 07:48 Toxic Granulation Not Reportable 07/21/19 07:48 Toxic Vacuolation Not Reportable 07/21/19 07:48 Dohle Bodies Not Reportable 07/21/19 07:48 Pelger-Huet Anomaly Not Reportable 07/21/19 07:48 Marge Rods Not Reportable 07/21/19 07:48 Platelet Estimate Consistent w auto 07/21/19 07:48 Clumped Platelets Not Reportable 07/21/19 07:48 Plt Clumps, EDTA Not Reportable 07/21/19 07:48 Large Platelets Not Reportable 07/21/19 07:48 Giant Platelets Not Reportable 07/21/19 07:48 Platelet Satelliting Not Reportable 07/21/19 07:48 Plt Morphology Comment Not Reportable 07/21/19 07:48 RBC Morphology Normal 07/21/19 07:48 Dimorphic RBCs Not Reportable 07/21/19 07:48 Polychromasia Not Reportable 07/21/19 07:48 Hypochromasia Not Reportable 07/21/19 07:48 Poikilocytosis Not Reportable 07/21/19 07:48 Anisocytosis Not Reportable 07/21/19 07:48 Microcytosis Not Reportable 07/21/19 07:48 Macrocytosis Not Reportable 07/21/19 07:48 Spherocytes Not Reportable 07/21/19 07:48 Pappenheimer Bodies Not Reportable 07/21/19 07:48 Sickle Cells Not Reportable 07/21/19 07:48 Target Cells Not Reportable 07/21/19 07:48 Tear Drop Cells Not Reportable 07/21/19 07:48 Ovalocytes Not Reportable 07/21/19 07:48 Helmet Cells Not Reportable 07/21/19 07:48 [place] Bodies Not Reportable 07/21/19 07:48 [place] Rings Not Reportable 07/21/19 07:48 [place] Cells Not Reportable 07/21/19 07:48 Bite Cells Not Reportable 07/21/19 07:48 Crenated Cell Not Reportable 07/21/19 07:48 Elliptocytes Not Reportable 07/21/19 07:48 Acanthocytes (Spur) Not Reportable 07/21/19 07:48 Rouleaux Not Reportable 07/21/19 07:48 Hemoglobin C Crystals Not Reportable 07/21/19 07:48 Schistocytes Not Reportable 07/21/19 07:48 Malaria parasites Not Reportable 07/21/19 07:48 Matias Bodies Not Reportable 07/21/19 07:48 Hem Pathologist Commnt No 07/21/19 07:48 POC ABG pH 7.355 (7.35-7.45) 07/17/19 17:51 POC ABG pCO2 69.3 (35-45) H 07/17/19 17:51 POC ABG pO2 63 (80-105) L 07/17/19 17:51 POC ABG HCO3 38.7 (22-26 mml/L) 07/17/19 17:51 POC ABG Total CO2 41 (23-27mmol/L) 07/17/19 17:51 POC ABG O2 Sat 89 07/17/19 17:51 POC ABG Base Excess 13 ((-2) - (+3)mmol/L) 07/17/19 17:51 FiO2 35 % 07/17/19 17:51 Sodium 140 mmol/L (137-145) 07/21/19 07:48 Potassium 3.5 mmol/L (3.6-5.0) L D 07/21/19 07:48 Chloride 89.4 mmol/L (98-107) L 07/21/19 07:48 Carbon Dioxide 34 mmol/L (22-30) H 07/21/19 07:48 Anion Gap 20 mmol/L 07/21/19 07:48 BUN 48 mg/dL (7-17) H 07/21/19 07:48 Creatinine 0.6 mg/dL (0.7-1.2) L 07/21/19 07:48 Estimated GFR > 60 ml/min 07/21/19 07:48 BUN/Creatinine Ratio 80 % 07/21/19 07:48 Glucose 203 mg/dL (65-100) H 07/21/19 07:48 Lactic Acid 1.00 mmol/L (0.7-2.0) 07/17/19 11:56 Calcium 9.8 mg/dL (8.4-10.2) 07/21/19 07:48 Magnesium 2.60 mg/dL (1.7-2.3) H 07/17/19 16:23 Iron 46 ug/dL (37-170) 07/19/19 14:06 TIBC 396 mcg/dL (250-450) 07/19/19 14:06 Ferritin 65.0 ng/mL (13.0-400.0) 07/19/19 14:06 Total Bilirubin 0.90 mg/dL (0.1-1.2) 07/21/19 07:48 AST 22 units/L (5-40) 07/21/19 07:48 ALT 62 units/L (7-56) H 07/21/19 07:48 Alkaline Phosphatase 71 units/L (35-129) 07/21/19 07:48 Total Creatine Kinase 59 units/L (30-135) 07/17/19 11:56 CK-MB (CK-2) 4.9 ng/mL (0.0-4.0) H 07/17/19 11:56 CK-MB (CK-2) Rel Index 8.3 (0-4) H 07/17/19 11:56 Troponin T < 0.010 ng/mL (0.00-0.029) 07/17/19 11:56 NT-Pro-B Natriuret Pep 1446 pg/mL (0-900) H 07/17/19 12:07 Total Protein 6.9 g/dL (6.3-8.2) 07/21/19 07:48 Albumin 4.0 g/dL (3.9-5) 07/21/19 07:48 Albumin/Globulin Ratio 1.4 % 07/21/19 07:48 Vitamin B12 1088 pg/mL (211-911) H 07/19/19 14:06 Folate > 20 ng/mL (7.3-26.0) 07/19/19 14:06 TSH 1.510 mlU/mL (0.270-4.200) 07/17/19 16:23 Free T4 1.00 ng/dL (0.76-1.46) 07/17/19 16:23 Active Medications - Current Medications Current Medications: Generic Name Dose Route Start Last Admin Trade Name Freq PRN Reason Stop Dose Admin Albuterol 2.5 mg 07/17/19 14:39 Proventil IH Q3HRT PRN Shortness Of Breath Albuterol/Ipratropium 1 ampul 07/19/19 08:00 07/21/19 19:55 Duoneb *Not For Prn Use* IH 1 ampul TIDRT SARTHAK Administration Amlodipine Besylate 10 mg 07/19/19 10:00 07/21/19 09:34 Amlodipine PO 10 mg QDAY SARTHAK Administration Arformoterol Tartrate 15 mcg 07/18/19 12:15 07/21/19 19:55 Brovana Nebu IH 15 mcg Q12HRT SARTHAK Administration Azithromycin 500 mg 07/18/19 16:00 07/21/19 19:20 Zithromax PO 07/22/19 16:01 500 mg Q24H SARTHAK Administration Budesonide 0.5 mg 07/18/19 12:15 07/21/19 19:55 Pulmicort IH 0.5 mg Q12HRT SARTHAK Administration Enoxaparin Sodium 40 mg 07/18/19 22:00 07/21/19 22:11 Enoxaparin SUB-Q 40 mg QDAY@2200 SARTHAK Administration Hydralazine HCl 10 mg 07/19/19 08:41 07/20/19 00:16 Apresoline IV 10 mg Q4HR PRN Administration BP >160/100 Methylprednisolone Sodium Succinate 125 mg 07/18/19 22:00 07/22/19 06:27 Solu-Medrol IV 125 mg Q8HR SARTHAK Administration Nicotine 14 mg 07/17/19 00:30 07/21/19 09:35 Habitrol TD 14 mg QDAY SARTHAK Administration Polyethylene Glycol 17 gm 07/20/19 18:13 07/20/19 21:47 Miralax 3350 PO 17 gm QDAY PRN Administration Constipation Senna/Docusate Sodium 2 tab 07/20/19 18:13 07/22/19 06:27 Senokot S PO 2 tab Q12H PRN Administration Laxative Effect Sodium Chloride 10 ml 07/17/19 22:00 07/21/19 22:12 Sodium Chloride Flush Syringe 10 Ml IV 10 ml BID SARTHAK Administration Sodium Chloride 10 ml 07/17/19 14:39 Sodium Chloride Flush Syringe 10 Ml IV PRN PRN LINE FLUSH
[2019-07-22 08:40] LABS: Mean Corpuscular HGB Conc 33 % (30-34); Mean Corpuscular Volume 109 fl (79-97); Platelet Count 155 K/mm3 (140-440); Red Blood Count 5.84 M/mm3 (3.65-5.03); Red Cell Distribution Width 14.8 % (13.2-15.2)
[2019-07-22 08:55] LABS: Hematocrit 63.8 % (30.3-42.9); Hemoglobin 21.2 gm/dl (10.1-14.3)
[2019-07-22] MEDS: BUDESONIDE 0.5 MG/2 ML NEBU IH SCH ×2 (09:49→20:53)
[2019-07-22] MEDS: IPRATROPIUM/ALBUTEROL SULFATE 3 ML AMPUL.NEB IH SCH ×3 (09:49→20:53)
[2019-07-22] MEDS: ARFORMOTEROL 15 MCG/2 ML NEBU IH SCH ×2 (09:49→20:53)
[2019-07-22] MEDS: NICOTINE 14 MG/24 HR PATCH TD SCH (12:09)
[2019-07-22] MEDS: amLODIPine 10 MG TAB PO SCH (12:09)
--- NOTE | 2019-07-22 13:49 | Progress Note ---
Assessment and Plan 58 y/o female with acute respiratory failure from COPD exacerbation. 1. Continue to wean FiO2 for sats >88%. Patient has no desire to quit smoking and wants to take care of her uncle and states she cannot do this on oxygen. 2. Will change steroids to BID 3. Smoking cessation discussed at bedside again this am 4. Will continue to follow. Subjective Date of service: 07/22/19 Principal diagnosis: polycythemia Interval history: No acute events. Down to 5 liters. Still with low sats. Objective Vital Signs - 12hr 07/22/19 07/22/19 07/22/19 05:05 09:49 10:00 Temperature 97.3 F L Pulse Rate 85 Pulse Rate [ 110 H Anterior Bilateral Throughout] Respiratory 20 Rate Respiratory 20 Rate [Anterior Bilateral Throughout] Blood Pressure 161/90 O2 Sat by Pulse 94 92 Oximetry 07/22/19 07/22/19 11:59 12:09 Temperature 97.7 F Pulse Rate 88 88 Pulse Rate [ Anterior Bilateral Throughout] Respiratory 18 Rate Respiratory Rate [Anterior Bilateral Throughout] Blood Pressure 143/83 143/83 O2 Sat by Pulse 87 Oximetry Constitutional: no acute distress, alert, other (sincerely obese) ENT: oropharynx moist, other (crowded oropharynx) Neck: supple, no lymphadenopathy Ascultation: Bilateral: diminished breath sounds, rhonchi Gastrointestinal: other (obese) Extremities: edema (trace edema) CBC and BMP: 07/22/19 08:16 07/21/19 07:48 ABG, PT/INR, D-dimer: ABG POC ABG pH 7.355 (7.35-7.45) 07/17/19 17:51 POC ABG pCO2 69.3 (35-45) H 07/17/19 17:51 POC ABG pO2 63 (80-105) L 07/17/19 17:51 POC ABG HCO3 38.7 (22-26 mml/L) 07/17/19 17:51 POC ABG Total CO2 41 (23-27mmol/L) 07/17/19 17:51 POC ABG O2 Sat 89 07/17/19 17:51 Abnormal lab findings: Abnormal Labs 07/17/19 07/17/19 07/17/19 11:56 11:56 11:56 RBC Hgb 18.2 H Hct 55.1 H* MCV 112 H MCH 37 H RDW 15.9 H Lymph % (Auto) [place] % (Auto) 10.7 H Lymph # 0.9 L Seg Neutrophils % 74.8 H Seg Neuts % (Manual) Lymphocytes % (Manual) Lymphocytes # (Manual) POC ABG pCO2 POC ABG pO2 Potassium 5.1 H Chloride Carbon Dioxide BUN 18 H Creatinine 0.5 L Glucose Magnesium AST 44 H ALT 75 H CK-MB (CK-2) 4.9 H CK-MB (CK-2) Rel Index 8.3 H NT-Pro-B Natriuret Pep Vitamin B12 07/17/19 07/17/19 07/17/19 12:07 16:23 17:51 RBC Hgb Hct MCV MCH RDW Lymph % (Auto) [place] % (Auto) Lymph # Seg Neutrophils % Seg Neuts % (Manual) Lymphocytes % (Manual) Lymphocytes # (Manual) POC ABG pCO2 69.3 H POC ABG pO2 63 L Potassium Chloride Carbon Dioxide BUN Creatinine Glucose Magnesium 2.60 H AST ALT CK-MB (CK-2) CK-MB (CK-2) Rel Index NT-Pro-B Natriuret Pep 1446 H Vitamin B12 07/18/19 07/18/19 07/19/19 04:17 04:17 14:06 RBC 5.25 H Hgb 19.1 H Hct 58.4 H* MCV 111 H MCH 36 H RDW 15.5 H Lymph % (Auto) 6.6 L [place] % (Auto) Lymph # 0.5 L Seg Neutrophils % 88.8 H Seg Neuts % (Manual) Lymphocytes % (Manual) Lymphocytes # (Manual) POC ABG pCO2 POC ABG pO2 Potassium Chloride 96.3 L Carbon Dioxide 32 H BUN 22 H Creatinine 0.6 L Glucose 153 H Magnesium AST ALT 76 H CK-MB (CK-2) CK-MB (CK-2) Rel Index NT-Pro-B Natriuret Pep Vitamin B12 1088 H 07/21/19 07/21/19 07/22/19 07:48 07:48 08:16 RBC 5.86 H 5.84 H Hgb 21.2 H* 21.2 H* Hct 64.4 H* 63.8 H* MCV 110 H 109 H MCH 36 H 36 H RDW Lymph % (Auto) [place] % (Auto) Lymph # Seg Neutrophils % Seg Neuts % (Manual) 95.0 H Lymphocytes % (Manual) 3.0 L Lymphocytes # (Manual) 0.2 L POC ABG pCO2 POC ABG pO2 Potassium 3.5 L D Chloride 89.4 L Carbon Dioxide 34 H BUN 48 H Creatinine 0.6 L Glucose 203 H Magnesium AST ALT 62 H CK-MB (CK-2) CK-MB (CK-2) Rel Index NT-Pro-B Natriuret Pep Vitamin B12
[2019-07-22] MEDS ORDERED: predniSONE 20 MG TAB PO SCH (14:00)
[2019-07-22] MEDS ORDERED: POTASSIUM CHLORIDE ER 20 MEQ TAB PO ONE (16:01)
[2019-07-22] MEDS: AZITHROMYCIN 250 MG TAB PO SCH (16:24)
[2019-07-22] MEDS: ENOXAPARIN 40 MG/0.4 ML INJ SUB-Q SCH (21:35)
[2019-07-22] MEDS: predniSONE 20 MG TAB PO SCH (21:35)
[2019-07-23 05:32] LABS: Mean Corpuscular HGB Conc 34 % (30-34); Mean Corpuscular Volume 108 fl (79-97); Platelet Count 142 K/mm3 (140-440); Red Blood Count 5.55 M/mm3 (3.65-5.03); Red Cell Distribution Width 14.7 % (13.2-15.2)
[2019-07-23 05:43] LABS: INR 1.06 (0.87-1.13); Partial Thromboplastin Time 25.4 Sec. (24.2-36.6)
[2019-07-23 05:50] LABS: BUN/Creatinine Ratio 62; Blood Urea Nitrogen 31 mg/dL (7-17); Calcium 9.3 mg/dL (8.4-10.2); Chol/HDL Ratio 3.63 %; HDL Cholesterol 66 mg/dL (40-59); Hemolysis Index 50; LDL Cholesterol,Direct 166 mg/dL (50-130)
[2019-07-23 06:37] LABS: Hematocrit 60.1 % (30.3-42.9); Hemoglobin 20.3 gm/dl (10.1-14.3)
[2019-07-23] MEDS: BUDESONIDE 0.5 MG/2 ML NEBU IH SCH (07:34)
[2019-07-23] MEDS: IPRATROPIUM/ALBUTEROL SULFATE 3 ML AMPUL.NEB IH SCH ×2 (07:34→13:30)
[2019-07-23] MEDS: ARFORMOTEROL 15 MCG/2 ML NEBU IH SCH (07:35)
--- NOTE | 2019-07-23 08:11 | Hem/Onc Progress Note ---
Assessment and Plan 1. Polycythemia, presumed to be secondary because of obesity, sleep apnea and smoking. I discussed with the patient regarding quitting smoking. Pulmonary team is following her. I had discussed with the patient regarding phlebotomy and will look into the same. IV access is poor. I spoke to the hospitalist team. 2. MCV is high. TSH, B12, folate is normal. We will follow the trend. 3. Mild abnormal liver function test. This may have a role in elevated MCV. 4. History of chronic obstructive pulmonary disease. 5. History of smoking. 6. History of sleep apnea. We will do JAK2 studies and follow the patient. phlebotomy was ordered - not done polycythemia - ? secondary - JAK2 pending b12- folate - iron ferritin - normal d/w dr garcia I had called [facility] - they dont come to hospital and do phlebotomy Pt needs simple phlebotomy - like blood donation volume, I do this in my clinic In hospital - usually blood bank does - but our blood bank had informed me - they dont waiting for home o2 and OP phlebotomy - Patient Problems (1) Polycythemia Current Visit: Yes Status: Chronic Subjective Date of service: 07/23/19 Principal diagnosis: Polycythemia Interval history: want to go home - on o2 Objective - Exam Narrative Exam: Pain - none General appearance - on o2 Performance status - limited self care Eyes - no icterus, ENT - no bleeding LNs cervical not palpable Neck - no LN Respiratory Normal Breath sounds - CTA anteriorly CVS S1 S2 + Extremities edema+ General GI Soft Rectal deferred female - deferred Skin warm Musculoskeletal moves limbs Neurologically follows commands - Constitutional Vitals: Last Vital Signs Temp 98.0 F 07/23/19 06:40 Pulse 86 07/23/19 06:40 Resp 20 07/23/19 06:40 BP 157/91 07/23/19 06:40 Pulse Ox 84 07/23/19 06:40 - Labs Lab Results: Laboratory Results - last 24 hr 07/22/19 07/23/19 07/23/19 08:16 05:05 05:05 WBC 5.1 4.5 RBC 5.84 H 5.55 H Hgb 21.2 H* 20.3 H* Hct 63.8 H* 60.1 H* MCV 109 H 108 H MCH 36 H 37 H MCHC 33 34 RDW 14.8 14.7 Plt Count 155 142 PT 13.7 INR 1.06 APTT 25.4 Sodium Potassium Chloride Carbon Dioxide Anion Gap BUN Creatinine Estimated GFR BUN/Creatinine Ratio Glucose Calcium Triglycerides Cholesterol LDL Cholesterol Direct HDL Cholesterol Cholesterol/HDL Ratio 07/23/19 05:05 WBC RBC Hgb Hct MCV MCH MCHC RDW Plt Count PT INR APTT Sodium 141 Potassium 4.9 D Chloride 94.9 L Carbon Dioxide 34 H Anion Gap 17 BUN 31 H Creatinine 0.5 L Estimated GFR > 60 BUN/Creatinine Ratio 62 Glucose 232 H Calcium 9.3 Triglycerides 183 H Cholesterol 240 H LDL Cholesterol Direct 166 H HDL Cholesterol 66 H Cholesterol/HDL Ratio 3.63 Medications & Allergies - Medications Allergies/Adverse Reactions: Allergies codeine Adverse Reaction (Verified 07/17/19 11:16) Nausea Home Medications: Home Medications Medication Instructions Recorded Confirmed Last Taken Type ALBUTEROL Inhaler (OR & NICU) 2 puff IH QID PRN #8.5 gram 07/23/19 Unknown Rx [ProAir HFA Inhaler] ALBUTEROL NEB's [Proventil 0.083% 2.5 mg IH TID PRN #30 neb 07/23/19 Unknown Rx NEBS] Aspirin [Adult Aspirin] 81 mg PO QDAY #30 tablet.dr 07/23/19 Unknown Rx Budesonide/Formoterol Fumarate 2 puff IH BID #1 hfa.aer.ad 07/23/19 Unknown Rx [Symbicort 160-4.5 Mcg Inhaler] Ipratropium/Albuterol Sulfate 1 ampul IH BID #30 ampul.neb 07/23/19 Unknown Rx [DUONEB *Not for PRN Use*] Nicotine [Habitrol] 14 mg TD QDAY #14 patch 07/23/19 Unknown Rx amLODIPine 10 mg PO QDAY #30 tablet 07/23/19 Unknown Rx methylPREDNISolone [Medrol 4MG 1 dose PO DAILY #1 tab.ds.pk 07/23/19 Unknown Rx DOSEPAK (21 tabs)] Active Medications: Generic Name Dose Route Start Last Admin Trade Name Freq PRN Reason Stop Dose Admin Albuterol 2.5 mg 07/17/19 14:39 Proventil IH Q3HRT PRN Shortness Of Breath Albuterol/Ipratropium 1 ampul 07/19/19 08:00 07/23/19 07:34 Duoneb *Not For Prn Use* IH 1 ampul TIDRT SARTHAK Administration Amlodipine Besylate 10 mg 07/19/19 10:00 07/22/19 12:09 Amlodipine PO 10 mg QDAY SARTHAK Administration Arformoterol Tartrate 15 mcg 07/18/19 12:15 07/23/19 07:35 Brovana Nebu IH 15 mcg Q12HRT SARTHAK Administration Budesonide 0.5 mg 07/18/19 12:15 07/23/19 07:34 Pulmicort IH 0.5 mg Q12HRT SARTHAK Administration Enoxaparin Sodium 40 mg 07/18/19 22:00 07/22/19 21:35 Enoxaparin SUB-Q 40 mg QDAY@2200 SARTHAK Administration Hydralazine HCl 10 mg 07/19/19 08:41 07/20/19 00:16 Apresoline IV 10 mg Q4HR PRN Administration BP >160/100 Nicotine 14 mg 07/17/19 00:30 07/22/19 12:09 Habitrol TD 14 mg QDAY SARTHAK Administration Polyethylene Glycol 17 gm 07/20/19 18:13 07/20/19 21:47 Miralax 3350 PO 17 gm QDAY PRN Administration Constipation Prednisone 60 mg 07/22/19 22:00 07/22/19 21:35 Deltasone PO 60 mg Q12HR SARTHAK Administration Senna/Docusate Sodium 2 tab 07/20/19 18:13 07/22/19 06:27 Senokot S PO 2 tab Q12H PRN Administration Laxative Effect Sodium Chloride 10 ml 07/17/19 22:00 07/22/19 21:36 Sodium Chloride Flush Syringe 10 Ml IV 10 ml BID SARTHAK Administration Sodium Chloride 10 ml 07/17/19 14:39 Sodium Chloride Flush Syringe 10 Ml IV PRN PRN LINE FLUSH
[2019-07-23] MEDS: NICOTINE 14 MG/24 HR PATCH TD SCH (13:26)
[2019-07-23] MEDS: amLODIPine 10 MG TAB PO SCH (13:26)
[2019-07-23] MEDS: predniSONE 20 MG TAB PO SCH (13:26)
--- NOTE | 2019-07-23 16:02 | Progress Note ---
Assessment and Plan Assessment and plan: Patient is a 58-year-old woman with history of obesity, COPD, tobacco dependency and Polycythemia who presents to [facility] ED with shortness of breath x 1 week. * CTA chest FINDINGS: Normal heart size with silhouette slightly exaggerated due to prominent right cardiophrenic angle fat pad. No effusions. No aortic aneurysm, dissection or suspicious pulmonary arterial filling defects. Mild pulmonary arterial hypertension. Mild aortic arch atherosclerotic calcifications noted. No size significant adenopathy. Normal airway. Unremarkable thyroid. Slight bibasilar atelectasis. Otherwise unremarkable lungs. Imaged upper abdomen reveals no acute significant abnormality. Subtle fatty hepatic infiltration not entirely excluded. Small bilateral extrarenal pelves may be incompletely imaged. Mild multilevel spinal degenerative changes as spurring and few endplate irregularities. IMPRESSION: No CT evidence of p ulmonary embolism with few other incidental findings, as above. Polycythemia, most likely PCV -home with Aspirin -Polycythemia is most likely due to smoking. Hematology consult -Patient admits that she was following up as an outpatient for for polycythemia, and it is not new -Discussed with Dr. Gant, he plans to do phlebotomy. However nursing staff are not trained on it. Escalated the issue to BOARD OPERATOR and head of lab Kat Mckeon called me and informed me that we do not do phlebotomy here and Dr. Gant spoke to [place] who doesn't do it but [facility] or [facility] does it per Kat. Dr. Gant will investigate. D/w Dr. Gant today, no one from [facility] or [facility] blood bank come to this hospital. Dr. Gant does phlebotomy in his office but for a wynne and he relied this to patient. So, patient can go to his office the day for this. Now, patient also has the option to donate blood, again outpatient Acute hypoxic respiratory failure, poa -Oxygen supplementation Acute Copd exacerbation; steroids, nebs, pulmonology consults, aggressive chest PT -Was on Stiolto and was following with Dr. Goff. Has not followed up or taken the medications due to lack of insurance CHF was ruled out CHF was suspected but highly doubt CHF based on my exam. Patient appears euvolemic and is laying flat Discontinued diuretics, echo shows preserved EF, cardiology consult pending Tobacco abuse/dependence Smoking cessation counseling performed for 10 minutes, nicotine patches when necessary dvt ppx- lovenox Disposition: home once O2 delivered, now down to 3.5 Liters, she has appointment for phlebotomy outpatient tomorrow. History Interval history: Patient was seen and examined. Follow-up on current diagnosis of COPD, still with O2 but now on nasal canula. No overnight events reported to me. Patient denies any chest pain, nausea/vomiting or severe headaches. Imaging, nursing note, chart, labs and old chart reviewed. Discussed with patient. Hospitalist Physical - Physical exam Narrative exam: Gen: WDWN, NAD, Awake, Alert, Orientated x 3, bmi 38.5 HEENT: NCAT, EOMI, PERRL, OP Clear Neck: supple, no adenopathy, no thyromegaly, no JVD CVS/Heart: RRR, normal S1S2, pulses present bilaterally Chest/Lungs: diminished bs bilateral with bilateral rhonchi, Symmetrical chest expansion, good air entry bilaterally GI/Abdomen: soft, NTND, good bowel sounds, no guarding or rebound /Bladder: no suprapubic tenderness, no CVA or paraspinal tenderness Extermity/Skin: no c/c/e, no obvious rash MSK: FROM x 4 Neuro: CN 2-12 grossly intact, no new focal deficits Psych: calm - Constitutional Vitals: Temp Pulse Resp BP Pulse Ox 98.2 F 78 18 124/78 92 07/23/19 13:00 07/23/19 13:57 07/23/19 13:57 07/23/19 13:26 07/23/19 13:00 General appearance: Present: no acute distress Results - Labs CBC & Chem 7: 07/23/19 05:05 07/23/19 05:05 Labs: Laboratory Last Values WBC 4.5 K/mm3 (4.5-11.0) 07/23/19 05:05 RBC 5.55 M/mm3 (3.65-5.03) H 07/23/19 05:05 Hgb 20.3 gm/dl (10.1-14.3) H* 07/23/19 05:05 Hct 60.1 % (30.3-42.9) H* 07/23/19 05:05 MCV 108 fl (79-97) H 07/23/19 05:05 MCH 37 pg (28-32) H 07/23/19 05:05 MCHC 34 % (30-34) 07/23/19 05:05 RDW 14.7 % (13.2-15.2) 07/23/19 05:05 Plt Count 142 K/mm3 (140-440) 07/23/19 05:05 Lymph % (Auto) 6.6 % (13.4-35.0) L 07/18/19 04:17 Roosevelt % (Auto) 4.5 % (0.0-7.3) 07/18/19 04:17 Eos % (Auto) 0.0 % (0.0-4.3) 07/18/19 04:17 Baso % (Auto) 0.1 % (0.0-1.8) 07/18/19 04:17 Lymph # 0.5 K/mm3 (1.2-5.4) L 07/18/19 04:17 Roosevelt # 0.3 K/mm3 (0.0-0.8) 07/18/19 04:17 Eos # 0.0 K/mm3 (0.0-0.4) 07/18/19 04:17 Baso # 0.0 K/mm3 (0.0-0.1) 07/18/19 04:17 Add Manual Diff Complete 07/21/19 07:48 Total Counted 100 07/21/19 07:48 Seg Neutrophils % Set Designer 07/21/19 07:48 Seg Neuts % (Manual) 95.0 % (40.0-70.0) H 07/21/19 07:48 Band Neutrophils % 0 % 07/21/19 07:48 Lymphocytes % (Manual) 3.0 % (13.4-35.0) L 07/21/19 07:48 Reactive Lymphs % (Man) 0 % 07/21/19 07:48 Monocytes % (Manual) 2.0 % (0.0-7.3) 07/21/19 07:48 Eosinophils % (Manual) 0 % (0.0-4.3) 07/21/19 07:48 Basophils % (Manual) 0 % (0.0-1.8) 07/21/19 07:48 Metamyelocytes % 0 % 07/21/19 07:48 Myelocytes % 0 % 07/21/19 07:48 Promyelocytes % 0 % 07/21/19 07:48 Blast Cells % 0 % 07/21/19 07:48 Nucleated RBC % Not Reportable 07/21/19 07:48 Seg Neutrophils # 6.2 K/mm3 (1.8-7.7) 07/18/19 04:17 Seg Neutrophils # Man 5.4 K/mm3 (1.8-7.7) 07/21/19 07:48 Band Neutrophils # 0.0 K/mm3 07/21/19 07:48 Lymphocytes # (Manual) 0.2 K/mm3 (1.2-5.4) L 07/21/19 07:48 Abs React Lymphs (Man) 0.0 K/mm3 07/21/19 07:48 Monocytes # (Manual) 0.1 K/mm3 (0.0-0.8) 07/21/19 07:48 Eosinophils # (Manual) 0.0 K/mm3 (0.0-0.4) 07/21/19 07:48 Basophils # (Manual) 0.0 K/mm3 (0.0-0.1) 07/21/19 07:48 Metamyelocytes # 0.0 K/mm3 07/21/19 07:48 Myelocytes # 0.0 K/mm3 07/21/19 07:48 Promyelocytes # 0.0 K/mm3 07/21/19 07:48 Blast Cells # 0.0 K/mm3 07/21/19 07:48 WBC Morphology Not Reportable 07/21/19 07:48 Hypersegmented Neuts Not Reportable 07/21/19 07:48 Hyposegmented Neuts Not Reportable 07/21/19 07:48 Hypogranular Neuts Not Reportable 07/21/19 07:48 Smudge Cells Not Reportable 07/21/19 07:48 Toxic Granulation Not Reportable 07/21/19 07:48 Toxic Vacuolation Not Reportable 07/21/19 07:48 Dohle Bodies Not Reportable 07/21/19 07:48 Pelger-Huet Anomaly Not Reportable 07/21/19 07:48 Marge Rods Not Reportable 07/21/19 07:48 Platelet Estimate Consistent w auto 07/21/19 07:48 Clumped Platelets Not Reportable 07/21/19 07:48 Plt Clumps, EDTA Not Reportable 07/21/19 07:48 Large Platelets Not Reportable 07/21/19 07:48 Giant Platelets Not Reportable 07/21/19 07:48 Platelet Satelliting Not Reportable 07/21/19 07:48 Plt Morphology Comment Not Reportable 07/21/19 07:48 RBC Morphology Normal 07/21/19 07:48 Dimorphic RBCs Not Reportable 07/21/19 07:48 Polychromasia Not Reportable 07/21/19 07:48 Hypochromasia Not Reportable 07/21/19 07:48 Poikilocytosis Not Reportable 07/21/19 07:48 Anisocytosis Not Reportable 07/21/19 07:48 Microcytosis Not Reportable 07/21/19 07:48 Macrocytosis Not Reportable 07/21/19 07:48 Spherocytes Not Reportable 07/21/19 07:48 Pappenheimer Bodies Not Reportable 07/21/19 07:48 Sickle Cells Not Reportable 07/21/19 07:48 Target Cells Not Reportable 07/21/19 07:48 Tear Drop Cells Not Reportable 07/21/19 07:48 Ovalocytes Not Reportable 07/21/19 07:48 Helmet Cells Not Reportable 07/21/19 07:48 Vickers-Winner Bodies Not Reportable 07/21/19 07:48 [place] Rings Not Reportable 07/21/19 07:48 Lynn Cells Not Reportable 07/21/19 07:48 Bite Cells Not Reportable 07/21/19 07:48 Crenated Cell Not Reportable 07/21/19 07:48 Elliptocytes Not Reportable 07/21/19 07:48 Acanthocytes (Spur) Not Reportable 07/21/19 07:48 Rouleaux Not Reportable 07/21/19 07:48 Hemoglobin C Crystals Not Reportable 07/21/19 07:48 Schistocytes Not Reportable 07/21/19 07:48 Malaria parasites Not Reportable 07/21/19 07:48 Matias Bodies Not Reportable 07/21/19 07:48 Hem Pathologist Commnt No 07/21/19 07:48 PT 13.7 Sec. (12.2-14.9) 07/23/19 05:05 INR 1.06 (0.87-1.13) 07/23/19 05:05 APTT 25.4 Sec. (24.2-36.6) 07/23/19 05:05 POC ABG pH 7.355 (7.35-7.45) 07/17/19 17:51 POC ABG pCO2 69.3 (35-45) H 07/17/19 17:51 POC ABG pO2 63 (80-105) L 07/17/19 17:51 POC ABG HCO3 38.7 (22-26 mml/L) 07/17/19 17:51 POC ABG Total CO2 41 (23-27mmol/L) 07/17/19 17:51 POC ABG O2 Sat 89 07/17/19 17:51 POC ABG Base Excess 13 ((-2) - (+3)mmol/L) 07/17/19 17:51 FiO2 35 % 07/17/19 17:51 Sodium 141 mmol/L (137-145) 07/23/19 05:05 Potassium 4.9 mmol/L (3.6-5.0) D 07/23/19 05:05 Chloride 94.9 mmol/L (98-107) L 07/23/19 05:05 Carbon Dioxide 34 mmol/L (22-30) H 07/23/19 05:05 Anion Gap 17 mmol/L 07/23/19 05:05 BUN 31 mg/dL (7-17) H 07/23/19 05:05 Creatinine 0.5 mg/dL (0.7-1.2) L 07/23/19 05:05 Estimated GFR > 60 ml/min 07/23/19 05:05 BUN/Creatinine Ratio 62 % 07/23/19 05:05 Glucose 232 mg/dL (65-100) H 07/23/19 05:05 Lactic Acid 1.00 mmol/L (0.7-2.0) 07/17/19 11:56 Calcium 9.3 mg/dL (8.4-10.2) 07/23/19 05:05 Magnesium 2.60 mg/dL (1.7-2.3) H 07/17/19 16:23 Iron 46 ug/dL (37-170) 07/19/19 14:06 TIBC 396 mcg/dL (250-450) 07/19/19 14:06 Ferritin 65.0 ng/mL (13.0-400.0) 07/19/19 14:06 Total Bilirubin 0.90 mg/dL (0.1-1.2) 07/21/19 07:48 AST 22 units/L (5-40) 07/21/19 07:48 ALT 62 units/L (7-56) H 07/21/19 07:48 Alkaline Phosphatase 71 units/L (35-129) 07/21/19 07:48 Total Creatine Kinase 59 units/L (30-135) 07/17/19 11:56 CK-MB (CK-2) 4.9 ng/mL (0.0-4.0) H 07/17/19 11:56 CK-MB (CK-2) Rel Index 8.3 (0-4) H 07/17/19 11:56 Troponin T < 0.010 ng/mL (0.00-0.029) 07/17/19 11:56 NT-Pro-B Natriuret Pep 1446 pg/mL (0-900) H 07/17/19 12:07 Total Protein 6.9 g/dL (6.3-8.2) 07/21/19 07:48 Albumin 4.0 g/dL (3.9-5) 07/21/19 07:48 Albumin/Globulin Ratio 1.4 % 07/21/19 07:48 Triglycerides 183 mg/dL (2-149) H 07/23/19 05:05 Cholesterol 240 mg/dL (50-199) H 07/23/19 05:05 LDL Cholesterol Direct 166 mg/dL (50-130) H 07/23/19 05:05 HDL Cholesterol 66 mg/dL (40-59) H 07/23/19 05:05 Cholesterol/HDL Ratio 3.63 % 07/23/19 05:05 Vitamin B12 1088 pg/mL (211-911) H 07/19/19 14:06 Folate > 20 ng/mL (7.3-26.0) 07/19/19 14:06 TSH 1.510 mlU/mL (0.270-4.200) 07/17/19 16:23 Free T4 1.00 ng/dL (0.76-1.46) 07/17/19 16:23 Active Medications - Current Medications Current Medications: Generic Name Dose Route Start Last Admin Trade Name Freq PRN Reason Stop Dose Admin Albuterol 2.5 mg 07/17/19 14:39 Proventil IH Q3HRT PRN Shortness Of Breath Albuterol/Ipratropium 1 ampul 07/19/19 08:00 07/23/19 13:30 Duoneb *Not For Prn Use* IH 1 ampul TIDRT SARTHAK Administration Amlodipine Besylate 10 mg 07/19/19 10:00 07/23/19 13:26 Amlodipine PO 10 mg QDAY SARTHAK Administration Arformoterol Tartrate 15 mcg 07/18/19 12:15 07/23/19 07:35 Brovana Nebu IH 15 mcg Q12HRT SARTHAK Administration Budesonide 0.5 mg 07/18/19 12:15 07/23/19 07:34 Pulmicort IH 0.5 mg Q12HRT SARTHAK Administration Enoxaparin Sodium 40 mg 07/18/19 22:00 07/22/19 21:35 Enoxaparin SUB-Q 40 mg QDAY@2200 SARTHAK Administration Hydralazine HCl 10 mg 07/19/19 08:41 07/20/19 00:16 Apresoline IV 10 mg Q4HR PRN Administration BP >160/100 Nicotine 14 mg 07/17/19 00:30 07/23/19 13:26 Habitrol TD 14 mg QDAY SARTHAK Administration Polyethylene Glycol 17 gm 07/20/19 18:13 07/20/19 21:47 Miralax 3350 PO 17 gm QDAY PRN Administration Constipation Prednisone 60 mg 07/22/19 22:00 07/23/19 13:26 Deltasone PO 60 mg Q12HR SARTHAK Administration Senna/Docusate Sodium 2 tab 07/20/19 18:13 07/22/19 06:27 Senokot S PO 2 tab Q12H PRN Administration Laxative Effect Sodium Chloride 10 ml 07/17/19 22:00 07/22/19 21:36 Sodium Chloride Flush Syringe 10 Ml IV 10 ml BID SARTHAK Administration Sodium Chloride 10 ml 07/17/19 14:39 Sodium Chloride Flush Syringe 10 Ml IV PRN PRN LINE FLUSH
--- NOTE | 2019-07-23 16:08 | Discharge Summary ---
Providers - Providers Date of Admission: 07/17/19 14:39 Date of discharge: 07/23/19 Attending physician: SHAWNA KERR 07/18/19 08:37 Consult to Cardiology [CONS] Routine Consulting Provider: VAL SANCHEZ Reason For Exam: chf 07/18/19 08:38 Consult to Physician [CONS] Routine Comment: Consulting Provider: RHODA GANT Physician Instructions: Reason For Exam: polycythemia 07/18/19 12:00 Consult to Physician [CONS] Routine Comment: Consulting Provider: ABBY GOFF Physician Instructions: Reason For Exam: copd 07/19/19 12:13 Consult to Physician [CONS] Routine Comment: Consulting Provider: VAL SANCHEZ Physician Instructions: Reason For Exam: chf Primary care physician: RENEWABLE ENERGY CONSULTANT Hospitalization Condition: Fair Hospital course: Patient is a 58-year-old woman with history of obesity, COPD, tobacco dependency and Polycythemia who presents to [facility] ED with shortness of breath x 1 week. * CTA chest FINDINGS: Normal heart size with silhouette slightly exaggerated due to prominent right cardiophrenic angle fat pad. No effusions. No aortic aneurysm, dissection or suspicious pulmonary arterial filling defects. Mild pulmonary arterial hypertension. Mild aortic arch atherosclerotic calcifications noted. No size significant adenopathy. Normal airway. Unremarkable thyroid. Slight bibasilar atelectasis. Otherwise unremarkable lungs. Imaged upper abdomen reveals no acute significant abnormality. Subtle fatty hepatic infiltration not entirely excluded. Small bilateral extrarenal pelves may be incompletely imaged. Mild multilevel spinal degenerative changes as spurring and few endplate irregularities. IMPRESSION: No CT evidence of pulmonary embolism with few other incidental findings, as above. Polycythemia, most likely PCV -home with baby Aspirin -Polycythemia is most likely due to smoking. Hematology consulted, input noted, many discussions. -Patient admits that she was following up as an outpatient for for polycythemia, and it is not new -Discussed with Dr. Gant, he plans to do phlebotomy. However nursing staff are not trained on it. Escalated the issue to SHIP LOADER and head of lab Kat Mckeon called me and informed me that we do not do phlebotomy here and Dr. Gant spoke to [place] who doesn't do it but [facility] or [facility] does it per Kat. Dr. Gant will investigate. D/w Dr. Gant today, no one from [facility] or [facility] blood bank come to this hospital. Dr. Gant does phlebotomy in his office but for a wynne and he relied this to patient but patient does not want to pay. She still will need to follow up JANICE-2 testing. Acute hypoxic respiratory failure, poa -Oxygen supplementation Acute Copd exacerbation; steroids, nebs, pulmonology consults, aggressive chest PT -Was on Stiolto and was following with Dr. Goff. Has not followed up or taken the medications due to lack of insurance CHF was ruled out CHF was suspected but highly doubt CHF based on my exam. Patient appears euvolemic and is laying flat Discontinued diuretics, echo shows preserved EF, cardiology consult pending Tobacco abuse/dependence Smoking cessation counseling performed for 10 minutes, nicotine patches when necessary dvt ppx- lovenox Disposition: home once O2 delivered, now down to 3.5 Liters, she has appointment for phlebotomy outpatient tomorrow. Disposition: DC TO HOME OR SELFCARE Time spent for discharge: 39 minutes Core Measure Documentation - Palliative Care Palliative Care/ Comfort Measures: Not Applicable - Core Measures Any of the following diagnoses?: none - VTE Discharge Requirements Deep Vein Thrombosis/Pulmonary Embolism Present on Admission: No Has pt received <5 days of overlap therapy or INR<2.0: No Anticoagulant overlap therapy prescribed at discharge: No Contraindication No Overlap Therapy order at DC: Not Indicated Exam - Physical Exam Narrative exam: Gen: WDWN, NAD, Awake, Alert, Orientated x 3, bmi 38.5 HEENT: NCAT, EOMI, PERRL, OP Clear Neck: supple, no adenopathy, no thyromegaly, no JVD CVS/Heart: RRR, normal S1S2, pulses present bilaterally Chest/Lungs: diminished bs bilateral with bilateral rhonchi, Symmetrical chest e xpansion, good air entry bilaterally GI/Abdomen: soft, NTND, good bowel sounds, no guarding or rebound /Bladder: no suprapubic tenderness, no CVA or paraspinal tenderness Extermity/Skin: no c/c/e, no obvious rash MSK: FROM x 4 Neuro: CN 2-12 grossly intact, no new focal deficits Psych: calm - Constitutional Vitals: Temp Pulse Resp BP Pulse Ox 98.2 F 78 18 124/78 92 11/07/19 13:00 07/23/19 13:57 07/23/19 13:57 07/23/19 13:26 07/23/19 13:00 Plan Activity: other (no strenous activity unless cleared by Dr. Gant) Diet: regular Special Instructions: smoking cessation, home oxygen via Durable Medical Equipment Needed Upon Discharge: Oxygen Follow up with: KENNA BAUMAN MD [Primary Care Provider] - 3-5 Days RHODA GANT MD [Staff Physician] - 7 Days Prescriptions: Aspirin [Adult Aspirin] 81 mg PO QDAY #30 tablet. amLODIPine 10 mg PO QDAY #30 tablet Ipratropium/Albuterol Sulfate [DUONEB *Not for PRN Use*] 1 ampul IH BID #30 ampul.neb Nicotine [Habitrol] 14 mg TD QDAY #14 patch methylPREDNISolone [Medrol 4MG DOSEPAK (21 tabs)] 1 dose PO DAILY #1 tab.ds.pk ALBUTEROL Inhaler (OR & NICU) [ProAir HFA Inhaler] 2 puff IH QID PRN #8.5 gram PRN Reason: Shortness Of Breath ALBUTEROL NEB's [Proventil 0.083% NEBS] 2.5 mg IH TID PRN #30 neb PRN Reason: Wheezing Budesonide/Formoterol Fumarate [Symbicort 160-4.5 Mcg Inhaler] 2 puff IH BID #1 hfa.aer.ad
[2019-07-23 18:12] VITALS: BP 118/73
== END 2019-07-23 18:20 | disposition home or self-care (01) | DRG 189 ==
LOC: ED 11:09 → IMCU 14:39 → 3A 07-19 11:43
PROVIDERS: ADMIT Internal Medicine; ATTEND Internal Medicine
PROC: 4A033R1 Measurement of Arterial Saturation, Peripheral, Percutaneous Approach (ICD-10-PCS; principal; 2019-07-17)
PROC: 5A09357 Assistance with Respiratory Ventilation, Less than 24 Consecutive Hours, Continuous Positive Airway Pressure (ICD-10-PCS; 2019-07-17)
PROC: 5A09357 Assistance with Respiratory Ventilation, Less than 24 Consecutive Hours, Continuous Positive Airway Pressure (ICD-10-PCS; 2019-07-18)
PROC: 5A09357 Assistance with Respiratory Ventilation, Less than 24 Consecutive Hours, Continuous Positive Airway Pressure (ICD-10-PCS; 2019-07-19)
PROC: 5A09357 Assistance with Respiratory Ventilation, Less than 24 Consecutive Hours, Continuous Positive Airway Pressure (ICD-10-PCS; 2019-07-20)
PROC: 5A09357 Assistance with Respiratory Ventilation, Less than 24 Consecutive Hours, Continuous Positive Airway Pressure (ICD-10-PCS; 2019-07-21)
PROC: 5A09357 Assistance with Respiratory Ventilation, Less than 24 Consecutive Hours, Continuous Positive Airway Pressure (ICD-10-PCS; 2019-07-22)
PROC: 5A09357 Assistance with Respiratory Ventilation, Less than 24 Consecutive Hours, Continuous Positive Airway Pressure (ICD-10-PCS; 2019-07-23)
DX: J96.01 Acute respiratory failure with hypoxia (principal); J44.1 Chronic obstructive pulmonary disease with (acute) exacerbation; J44.0 Chronic obstructive pulmonary disease with (acute) lower respiratory infection; E66.2 Morbid (severe) obesity with alveolar hypoventilation; F17.213 Nicotine dependence, cigarettes, with withdrawal; D75.1 Secondary polycythemia; J20.9 Acute bronchitis, unspecified; I10 Essential (primary) hypertension; Z82.49 Family history of ischemic heart disease and other diseases of the circulatory system; Z71.6 Tobacco abuse counseling; Z68.38 Body mass index [BMI] 38.0-38.9, adult; Z83.3 Family history of diabetes mellitus; Z88.5 Allergy status to narcotic agent; Z79.899 Other long term (current) drug therapy
CPT/HCPCS: 36415; 36600; 71045; 71275; 80048; 80053; 80061; 82140; 82550; 82553; 82607; 82728; 82747; 82803; 83550; 83735; 83880; 84439; 84443; 84484; 85007; 85025; 85027; 85610; 85730; 90686; 93005; 93010; 93306; 94640; 94644; 94660; 94760; 96365; 96375; G0378; J0360; J0692; J1650; J1940; J2920; J2930; J3475; J7512; Q9967